=== PATIENT | female | born 1975 | race Caucasian/White ===

== ENCOUNTER 2018-10-26 20:38 | Emergency (ER) | payer OTHER ==
[2018-10-26 21:42] VITALS: BP 143/95; PULSE 89; RESP 20; TEMP 98.1
--- NOTE | 2018-10-26 21:58 | ED ---
Wound/Laceration HPI - General Source: patient Mode of arrival: wheelchair Limitations: no limitations <Ruby Monreal - Last Filed: 10/27/18 00:04> <Dulce Woodruff - Last Filed: 10/27/18 07:50> - General Chief Complaint: Wound/Laceration Stated Complaint: Knee injury/Laceration Time Seen by Provider: 10/26/18 21:45 - History of Present Illness Initial Comments: 43-year-old female presenting today for chief complaint of right knee pain. Patient states at 10 AM while walking the dog she tripped over one of the dogs falling forward on her right knee. Patient states there is a laceration of the anterior knee she states she was able to weight-bear and bend the knee throughout the day however the pain began increasing. When her significant other came home and evaluate the laceration he told her she needs presents emergency department for suture repair. The present to urgent care facility where they were sent to the emergency department for further evaluation and treatment. Patient did have the knee cleansed at the urgent care facility prior to arrival. Patient states her tetanus is up-to-date within the last 6 years. Patient denies any injury to the right ankle right hip she denies head injury injuries in neck or back. Patient states the pain is isolated to the anterior knee, sharp increase with movement. Remaingin ROS (-). (Ruby Monreal) - Related Data Home Medications Medication Instructions Recorded Confirmed Dextroamphetamine/Amphetamine 15 mg PO QAM 10/26/18 10/26/18 [Adderall Xr] Previous Rx's Medication Instructions Recorded Cephalexin [Keflex] 500 mg PO Q8HR 7 Days #21 cap 10/26/18 Allergies Allergy/AdvReac Type Severity Reaction Status Date / Time codeine Allergy Itching Verified 10/26/18 21:42 Review of Systems ROS Other: All systems not noted in ROS Statement are negative. <Ruby Monreal - Last Filed: 10/27/18 00:04> ROS Other: All systems not noted in ROS Statement are negative. <Dulce Woodruff - Last Filed: 10/27/18 07:50> ROS Statement: Those systems with pertinent positive or pertinent negative responses have been documented in the HPI. Past Medical History Additional Past Medical History / Comment(s): heart murmur History of Any Multi-Drug Resistant Organisms: None Reported Past Surgical History: Appendectomy, Hernia Repair Past Psychological History: No Psychological Hx Reported Smoking Status: Current every day smoker Past Alcohol Use History: Occasional Past Drug Use History: None Reported <Ruby Monreal - Last Filed: 10/27/18 00:04> General Exam Limitations: no limitations <Ruby Monreal Aly - Last Filed: 10/27/18 00:04> - General Exam Comments Initial Comments: General: The patient is awake and alert, in no distress, and does not appear acutely ill. Eye: Pupils are equal, round and reactive to light, extra-ocular movements are intact. No nystagmus. There is normal conjunctiva bilaterally. No signs of icterus. Ears, nose, mouth and throat: There are moist mucous membranes and no oral lesions. Neck: The neck is supple, there is no tenderness or JVD. Cardiovascular: There is a regular rate and rhythm. No murmur, rub or gallop is appreciated. Respiratory: Lungs are clear to auscultation, respirations are non-labored, breath sounds are equal. No wheezes, stridor, rales, or rhonchi. Musculoskeletal: Normal ROM of the knees bilaterally including the right knee patient does admit to tenderness with range of motion. Extensor mechanism intact. Strength 5/5. Sensation intact both proximal and distal to injury site. DP pulses equal bilaterally 2+. Neurological: A&O x 3. CN II-XII intact, There are no obvious motor or sensory deficits. Coordination appears grossly intact. Speech is normal. Skin: Skin is warm and dry and no rashes. Irregular 5cm laceration of the right anterior knee, no exposure of tendon-some adipose exposure. There is some devitalized tissue near the medial border of laceration, very small area. No evidence of obvious FB. No active bleeding, or signficant knee swelling or erythema. Psychiatric: Cooperative, appropriate mood & affect, normal judgment. (Ruby Monreal) Course Vital Signs 10/26/18 21:37 Temperature 98.1 F Pulse Rate 89 Respiratory 20 Rate Blood Pressure 143/95 O2 Sat by Pulse 96 Oximetry Procedures - Laceration Laceration #1 Consent Obtained: verbal consent Indication: laceration Site: lower extremity (right knee) Size (cm): 5 Description: irregular Depth: simple, single layer Anesthetic Used: lidocaine 1% Anesthesia Technique: local infiltration Amount (mls): 5 Pre-repair: wound explored, irrigated extensively, deep structures intact Type of Sutures: nylon Size of Sutures: 4-0 Number of Sutures: 6 Technique: simple, interrupted Patient Tolerated Procedure: well, no complications <Ruby Monreal - Last Filed: 10/27/18 00:04> - Laceration Laceration #1 Additional Comments: Small area on the medial aspect of laceration where there was devitalized tissue we did clean wound edges by removing the tissue using sterile scissors. Less than 2mm total. (Ruby Monreal) Medical Decision Making <Ruby oMnreal - Last Filed: 10/27/18 00:04> <Dulce Woodruff - Last Filed: 10/27/18 07:50> - Medical Decision Making 43-year-old female presented for right knee laceration injury occurred at 10 AM. Patient presented nearly 11 hours after injury occurred. There is no evidence of infection at this time. Patient is extensor mechanism intact. Patient has no neurovascular deficit or decreased range of motion able to weight-bear. Imaging studies really no obvious acute osseous injury there is no patella mehnaz or [place]. Supportive of a quadriceps or inferior patellar tendon rupture. Cannot rule out occult injury. No obvious exposure of tendon. Laceration was repaired some devitalized areas were revised. Wound was extensively irrigated prior to closure and cleansed with iodine. No evidence of foreign body, on physical examination. Patient was given Ancef given length of time laceration was open and location of laceration. Patient will be discharged with a prescription for Keflex to prevent infection. I discussed at length and in detail the importance of orthopedic surgery follow-up and monitoring for signs of infection. Patient verbalized understanding I did discuss with patient the possibility of a possible occult tendon injury however there is no evidence of this at this time patient verbalizes understanding. I discussed the case with attending provider Dr. Woodruff who looked at imaging studies she is agreeable care plan discharge in this time patient is placed in knee immobilizer sterile bandage was applied prior to this application. Patient was given [place] and emergency department for pain management and was discharged appearing well. Prior to discharge I did discuss the signs of infection and all return parameters. (Ruby Monreal) I was available for consultation in the emergency department. The history and physical exam were done by the midlevel provider. I was consulted for this patient's care. I reviewed the case with the midlevel provider and based on their presentation of the patient, I agree with the assessment, medical decision making and plan of care as documented. Chart was dictated using [employer] dictation software. Attempts were made to correct any dictation errors however some typographical errors may persist. (Dulce Woodruff) Disposition Is patient prescribed a controlled substance at d/c from ED?: No Time of Disposition: 23:43 <Ruby Monreal - Last Filed: 10/27/18 00:04> <Dulce Woodruff - Last Filed: 10/27/18 07:50> Clinical Impression: Knee laceration, Right knee injury, Right anterior knee pain, Fall Disposition: HOME SELF-CARE Condition: Good Instructions (If sedation given, give patient instructions): Care For Your Stitches (ED), Laceration (ED), R.I.C.E. Treatment (ED) Additional Instructions: Please use medication as discussed. Please follow-up use antibiotics as discussed please monitor closely the wound for infection checking under bandage daily. He is present to emergency for increasing pain and drainage fever red and swollen knee. I do recommend close orthopedic surgery follow-up for further evaluation of possible underlying hidden tendon injury in next 2-3 days. Use knee immobilizer when walking. Please return for suture removal in 7 days. Please return to emergency room if the symptoms increase or worsen or for any other concerns. Prescriptions: Cephalexin [Keflex] 500 mg PO Q8HR 7 Days #21 cap Referrals: Amilcar Pino DO [Primary Care Provider] - 1-2 days Patel Lieberman MD [STAFF PHYSICIAN] - 1-2 days
[2018-10-26] MEDS ORDERED: HYDROcodone/APAP 5-325MG 1 EACH TAB PO STA (22:20)
--- NOTE | 2018-10-26 22:40 | XR ---
EXAM: XR Right Knee, 3 views CLINICAL HISTORY: ITS.REASON XR Reason: Pain and laceration after fall TECHNIQUE: Three views of the right knee. COMPARISON: None FINDINGS: Bones/joints: No displaced fracture or dislocation identified. Joint space is maintained. No bony lesion. No joint effusion. Soft tissues: Soft tissue laceration in the infrapatellar soft tissues. Punctate densities in the infrapatellar soft tissues may represent debris. IMPRESSION: No displaced fracture or dislocation identified. Soft tissue laceration in the infrapatellar soft tissues. If there is concern regarding injury to the infrapatellar tendon, consider further evaluation with MRI. No evidence of patella mehnaz. Punctate densities in the infrapatellar soft tissues may represent debris.
[2018-10-26] MEDS ORDERED: ceFAZolin 1,000 MG VIAL IM STA (22:42)
[2018-10-26] MEDS ORDERED: SODIUM CHLORIDE 0.9% IRRIG 1,000 ML BTL IRRIGATION ONE (22:42)
[2018-10-26] MEDS ORDERED: LIDOCAINE 1% INJ 10MG/ML (20 ML MDV) SQ ONE (22:43)
== END 2018-10-27 00:02 | disposition home or self-care (01) ==
LOC: EC 20:38
DX: S81.011A Laceration without foreign body, right knee, initial encounter (principal); F17.200 Nicotine dependence, unspecified, uncomplicated; Z88.5 Allergy status to narcotic agent; W01.0XXA Fall on same level from slipping, tripping and stumbling without subsequent striking against object, initial encounter; Y93.K1 Activity, walking an animal
CPT/HCPCS: 73562; 99283; 12002; 96372; J0690; J2001

== ENCOUNTER 2024-01-08 08:55 | Emergency (ER) | payer BC ==
[2024-01-08 09:04] VITALS: TEMP 97.9
[2024-01-08 09:58] LABS: ALT 17 U/L (4-34); AST 26 U/L (14-36); African American GFR (CKD) >90 (>60 ml/min/1.73 sqM); Alkaline Phosphatase 79 U/L (38-126); Anion Gap 8 mmol/L; Blood Urea Nitrogen 12 mg/dL (7-17); Calcium 10.9 mg/dL (8.4-10.2); Carbon Dioxide 28 mmol/L (22-30); Chloride 102 mmol/L (98-107); Glucose 110 mg/dL (74-99); Lipase 39 U/L (23-300); Non-African American GFR(CKD) >90 (>60 ml/min/1.73 sqM); Potassium 5.6 mmol/L (3.5-5.1); Sodium 138 mmol/L (137-145); Total Bilirubin 0.9 mg/dL (0.2-1.3); Total Protein 8.1 g/dL (6.3-8.2)
[2024-01-08 10:00] LABS: Basophils % (A) 0 %; Eosinophils # (A) 0.1 k/uL (0-0.7); Eosinophils % (A) 1 %; HCT 49.8 % (34.0-46.0); Lymphocytes # (A) 1.7 k/uL (1.0-4.8); Lymphocytes % (A) 16 %; MCH 33.7 pg (25.0-35.0); MCHC 34.2 g/dL (31.0-37.0); MCV 98.5 fL (80.0-100.0); Mean Platelet Volume 7.4; Monocytes # (A) 0.5 k/uL (0-1.0); Monocytes % (A) 5 %; Neutrophils # (A) 8.4 k/uL (1.3-7.7); Neutrophils % (A) 78 %; Platelet Count 344 k/uL (150-450); RBC 5.05 m/uL (3.80-5.40); WBC 10.8 k/uL (3.8-10.6)
--- NOTE | 2024-01-08 10:19 | ED ---
Nausea/Vomiting/Diarrhea HPI - General Chief complaint: Abdominal Pain Stated complaint: diarrhea Time Seen by Provider: 01/08/24 10:06 Source: patient, family, RN notes reviewed Mode of arrival: ambulatory Limitations: no limitations - History of Present Illness Initial comments: This is a 48-year-old female who presents to the emergency department for diarrhea. States that this has been ongoing for the last month. Unsure how many times a day she goes, states that it varies significantly. This was originally formed but has since been essentially straight liquid. She has been on Imodium and Lomotil without any relief. She does note being on antibiotics on and off due to a dental infection. She saw her primary care provider 1.5 weeks ago and sent in a stool sample. States that this was negative for C. difficile. She has abdominal discomfort as well as weight loss, however the abdominal pain has gotten worse over the last couple of days. She has not had any vomiting but has been nauseous. She is concerned because her mother just of colon cancer. MD complaint: diarrhea - Related Data Home Medications Medication Instructions Recorded Confirmed Dextroamphetamine/Amphetamine 15 mg PO QAM 10/26/18 10/26/18 [Adderall Xr] Previous Rx's Medication Instructions Recorded cephALEXin [Keflex] 500 mg PO Q8HR 7 Days #21 cap 10/26/18 Allergies Allergy/AdvReac Type Severity Reaction Status Date / Time cephalexin [From Keflex] Allergy Nausea & Verified 01/08/24 09:04 Vomiting & Diarrhea codeine Allergy Itching Verified 10/26/18 21:42 Review of Systems ROS Statement: Those systems with pertinent positive or pertinent negative responses have been documented in the HPI. ROS Other: All systems not noted in ROS Statement are negative. Past Medical History Additional Past Medical History / Comment(s): heart murmur History of Any Multi-Drug Resistant Organisms: None Reported Past Surgical History: Appendectomy, Hernia Repair Past Psychological History: No Psychological Hx Reported Past Alcohol Use History: Occasional Past Drug Use History: None Reported General Exam Limitations: no limitations General appearance: alert, in no apparent distress Head exam: Present: atraumatic, normocephalic, normal inspection Respiratory exam: Present: normal lung sounds bilaterally. Absent: respiratory distress, wheezes, rales, rhonchi, stridor Cardiovascular Exam: Present: regular rate, normal rhythm, normal heart sounds. Absent: systolic murmur, diastolic murmur, rubs, gallop, clicks GI/Abdominal exam: Present: soft, tenderness (generalized), normal bowel sounds. Absent: distended Neurological exam: Present: alert, oriented X3, CN II-XII intact Psychiatric exam: Present: normal affect, normal mood Skin exam: Present: warm, dry, intact, normal color. Absent: rash Course Vital Signs 01/08/24 01/08/24 09:00 12:37 Temperature 97.9 F Pulse Rate 93 87 Respiratory 20 18 Rate Blood Pressure 127/85 145/89 O2 Sat by Pulse 99 98 Oximetry Medical Decision Making - Medical Decision Making This is a 48 year old female who presents to the emergency department for abdominal pain and diarrhea. Was pt. sent in by a medical professional or institution? @ -No Did you speak to anyone other than the patient for history? @ -No Did you review nursing and triage notes? @ -Yes, and I agree, it is accurate with regards to the patient's symptoms. Were old charts reviewed? @ -No Differential Diagnosis? @ -Differential Abdominal Pain Women: Appendicitis, Cholecystitis, diverticulosis, ischemic bowel, pancreatitis, hepatitis, UTI, gastroenteritis, AAA, incarcerated hernia, bowel obstruction, constipation, inflammatory bowel, hepatitis, peptic ulcer disease, splenic infarction, perforated viscus, vulvitis, ovarian torsion, PID, kidney stone, placenta abruption, this is not meant to be an all-inclusive list EKG interpreted by me (3pts min.)? @ -Not obtained X-rays interpreted by me (1pt min.)? @ -Not obtained CT interpreted by me (1pt min.)? @ -CT scan of the abdomen and pelvis obtained. My interpretation identifies no evidence of bowel wall thickening or free air. U/S interpreted by me (1pt. min.)? @ -Not obtained What testing was considered but not performed? (CT, X-rays, U/S, labs)? Why? @ -None What meds were considered but not given? Why? @ -None Did you discuss the management of the patient with other professionals? @ -No Did you reconcile home meds? @ -No Was smoking cessation discussed for >3mins.? @ -No Was critical care preformed (if so, how long)? @ -No Were there social determinants of health that impacted care today? How? (Homelessness, low income, unemployed, alcoholism, drug addiction, transportation, low edu. Level, literacy, decrease access to med. care, snf, rehab)? @ -No Was there de-escalation of care discussed even if they declined? (Discuss DNR or withdrawal of care, Hospice)? @ -No What co-morbidities impacted this encounter? (DM, HTN, Smoking, COPD, CAD, Cancer, CVA, Hep., AIDS, mental health diagnosis, sleep apnea, morbid obesity)? @ -None Was patient admitted / discharged? @ -Discharged. Lab work demonstrates mild leukocytosis with a white blood cell count of 10.8. She also has mild hyperkalemia with a potassium of 5.6. Urinalysis negative for signs of infection. CT scan of the abdomen and pelvis obtained demonstrating no acute process. Discussed the possibility of something like irritable bowel syndrome or repeated antibiotic use contributing to her symptoms. Lokelma administered in the emergency department due to hyperkalemia. Discussed using fiber supplements to help bulk up the stool, as she is not going multiple times a day at this point, it is just very loose. Also advised she remain well-hydrated. Information for GI follow-up provided. Case discussed with ED attending Dr. Ruiz. Return precautions reviewed in depth, the patient is instructed to return to the emergency department with any new, worsening, or concerning symptoms. Patient verbalized understanding. Undiagnosed new problem with uncertain prognosis? @ -None Drug Therapy requiring intensive monitoring for toxicity (Heparin, Nitro, Insulin, Cardizem)? @ -None Were any procedures done? @ -None Diagnosis/symptom? @ -Diarrhea, hyperkalemia Acute, or Chronic, or Acute on Chronic? @ -Acute Uncomplicated (without systemic symptoms) or Complicated (systemic symptoms)? @ -Uncomplicated Side effects of treatment? @ -None Exacerbation, Progression, or Severe Exacerbation] @ -Not applicable Poses a threat to life or bodily function? @ -No - Lab Data Result diagrams: 01/08/24 09:08 01/08/24 09:08 Lab Results 01/08/24 01/08/24 01/08/24 Range/Units 09:08 09:08 09:08 WBC 10.8 H (3.8-10.6) k/uL RBC 5.05 (3.80-5.40) m/uL Hgb 17.0 H (11.4-16.0) gm/dL Hct 49.8 H (34.0-46.0) % MCV 98.5 (80.0-100.0) fL MCH 33.7 (25.0-35.0) pg MCHC 34.2 (31.0-37.0) g/dL RDW 12.0 (11.5-15.5) % Plt Count 344 (150-450) k/uL MPV 7.4 Neutrophils % 78 % Lymphocytes % 16 % Monocytes % 5 % Eosinophils % 1 % Basophils % 0 % Neutrophils # 8.4 H (1.3-7.7) k/uL Lymphocytes # 1.7 (1.0-4.8) k/uL Monocytes # 0.5 (0-1.0) k/uL Eosinophils # 0.1 (0-0.7) k/uL Basophils # 0.0 (0-0.2) k/uL Sodium 138 (137-145) mmol/L Potassium 5.6 H (3.5-5.1) mmol/L Chloride 102 (98-107) mmol/L Carbon Dioxide 28 (22-30) mmol/L Anion Gap 8 mmol/L BUN 12 (7-17) mg/dL Creatinine 0.70 (0.52-1.04) mg/dL Est GFR (CKD-EPI)AfAm >90 (>60 ml/min/1.73 sqM) Est GFR (CKD-EPI)NonAf >90 (>60 ml/min/1.73 sqM) Glucose 110 H (74-99) mg/dL Plasma Lactic Acid David (0.7-2.0) mmol/L Calcium 10.9 H (8.4-10.2) mg/dL Phosphorus (2.5-4.5) mg/dL Magnesium (1.6-2.3) mg/dL Total Bilirubin 0.9 (0.2-1.3) mg/dL AST 26 (14-36) U/L ALT 17 (4-34) U/L Alkaline Phosphatase 79 (38-126) U/L Total Protein 8.1 (6.3-8.2) g/dL Albumin 5.0 (3.5-5.0) g/dL Lipase 39 (23-300) U/L Urine Color Colorless Urine Appearance Clear (Clear) Urine pH 5.5 (5.0-8.0) Ur Specific [place] 1.005 (1.001-1.035) Urine Protein Negative (Negative) Urine Glucose (UA) Negative (Negative) Urine Ketones Negative (Negative) Urine Blood Negative (Negative) Urine Nitrite Negative (Negative) Urine Bilirubin Negative (Negative) Urine Urobilinogen <2.0 (<2.0) mg/dL Ur Leukocyte Esterase Negative (Negative) 01/08/24 01/08/24 Range/Units 09:08 09:08 WBC (3.8-10.6) k/uL RBC (3.80-5.40) m/uL Hgb (11.4-16.0) gm/dL Hct (34.0-46.0) % MCV (80.0-100.0) fL MCH (25.0-35.0) pg MCHC (31.0-37.0) g/dL RDW (11.5-15.5) % Plt Count (150-450) k/uL MPV Neutrophils % % Lymphocytes % % Monocytes % % Eosinophils % % Basophils % % Neutrophils # (1.3-7.7) k/uL Lymphocytes # (1.0-4.8) k/uL Monocytes # (0-1.0) k/uL Eosinophils # (0-0.7) k/uL Basophils # (0-0.2) k/uL Sodium (137-145) mmol/L Potassium (3.5-5.1) mmol/L Chloride (98-107) mmol/L Carbon Dioxide (22-30) mmol/L Anion Gap mmol/L BUN (7-17) mg/dL Creatinine (0.52-1.04) mg/dL Est GFR (CKD-EPI)AfAm (>60 ml/min/1.73 sqM) Est GFR (CKD-EPI)NonAf (>60 ml/min/1.73 sqM) Glucose (74-99) mg/dL Plasma Lactic Acid David 1.0 (0.7-2.0) mmol/L Calcium (8.4-10.2) mg/dL Phosphorus 3.4 (2.5-4.5) mg/dL Magnesium 2.0 (1.6-2.3) mg/dL Total Bilirubin (0.2-1.3) mg/dL AST (14-36) U/L ALT (4-34) U/L Alkaline Phosphatase (38-126) U/L Total Protein (6.3-8.2) g/dL Albumin (3.5-5.0) g/dL Lipase (23-300) U/L Urine Color Urine Appearance (Clear) Urine pH (5.0-8.0) Ur Specific [place] (1.001-1.035) Urine Protein (Negative) Urine Glucose (UA) (Negative) Urine Ketones (Negative) Urine Blood (Negative) Urine Nitrite (Negative) Urine Bilirubin (Negative) Urine Urobilinogen (<2.0) mg/dL Ur Leukocyte Esterase (Negative) - Radiology Data Radiology results: report reviewed, image reviewed Disposition Clinical Impression: Diarrhea, Hyperkalemia Disposition: HOME SELF-CARE Instructions (If sedation given, give patient instructions): Irritable Bowel Syndrome (ED), Acute Diarrhea (ED) Additional Instructions: Return to the emergency department with any new, worsening, or concerning symptoms. Make sure you drink plenty of fluids. Begin taking your fiber supplements. You can also contact the hydramatic mechanic listed below. Let them know that you were seen in the emergency department and they will schedule you for a follow-up appointment. Is patient prescribed a controlled substance at d/c from ED?: No Referrals: Amilcar Pino DO [Primary Care Provider] - 1-2 days Katiana Morillo MD [STAFF PHYSICIAN] - 1-2 days Time of Disposition: 11:39
[2024-01-08 10:22] LABS: Appearance,Urine Clear (Clear); Bilirubin,Urine Negative (Negative); Blood,Urine Negative (Negative); Color,Urine Colorless; Glucose,Urine (UA) Negative (Negative); Ketones,Urine Negative (Negative); Leukocyte Esterase,Urine Negative (Negative); Nitrite,Urine Negative (Negative); PH, Urine 5.5 (5.0-8.0); Protein,Urine Negative (Negative); Specific Gravity,Urine 1.005 (1.001-1.035); Urobilinogen,Urine <2.0 mg/dL (<2.0)
[2024-01-08 10:37] LABS: Phosphorus 3.4 mg/dL (2.5-4.5)
--- NOTE | 2024-01-08 10:55 | CT ---
EXAMINATION TYPE: CT abdomen pelvis w con DATE OF EXAM: 01/08/2024 COMPARISON: None HISTORY: diarrhea CT DLP: 602.3 mGycm Automated exposure control for dose reduction was used. TECHNIQUE: Helical acquisition of images was performed from the lung bases through the pelvis. CONTRAST: Performed without Oral Contrast and with IV Contrast, patient injected with 100 mL of Isovue 300. FINDINGS: The lung bases are clear. The gallbladder is normal without distention, wall thickening, pericholecystic fluid or gallstones. T here is no biliary ductal dilatation. There is no focal mass or organomegaly involving the liver, pancreas, spleen or adrenal glands. There is no solid renal mass or hydronephrosis and there is homogeneous contrast enhancement of the r enal parenchyma. The caliber the abdominal aorta is normal is no retroperitoneal adenopathy or hemorr laurie. The bowel loops are normal in caliber and there is no evidence of dilatation or obstruction. No infla mmatory changes are identified in the bowel wall or mesentery. There is no free intraperitoneal air or fluid. No pelvic mass, free fluid, abscess or adenopathy. The osseous structures and soft tissues are intact. IMPRESSION: No significant abnormality seen.
[2024-01-08 12:39] VITALS: BP 145/89; PULSE 87; RESP 18
[2024-01-08] MEDS: SODIUM ZIRCONIUM CYCLOSILICATE 10 GM PACKET PO ONE (12:49)
== END 2024-01-08 13:00 | disposition home or self-care (01) ==
LOC: EC 08:55
DX: R19.7 Diarrhea, unspecified (principal); R10.84 Generalized abdominal pain; E87.5 Hyperkalemia; D72.829 Elevated white blood cell count, unspecified; Z88.5 Allergy status to narcotic agent; Z88.1 Allergy status to other antibiotic agents
CPT/HCPCS: 36415; 80053; 83605; 83690; 83735; 84100; 85025; 81003; 74177; 99284; Q9967

== ENCOUNTER 2024-03-10 08:15 | Day surgery (SDC) | payer BC ==
[2024-03-10 09:07] VITALS: RESP 16; TEMP 98.3
[2024-03-10] MEDS: IV FLUID CONTINUATION 1,000 ML IV ONE ×2 (09:12→09:47)
[2024-03-10] MEDS: LACTATED RINGERS 1,000 ML IV SCH (09:12)
[2024-03-10] MEDS: LIDOCAINE 1% (10MG/ML) FOR IV START INTRADERMA PRN (09:12)
[2024-03-10] MEDS ORDERED: LIDOCAINE 1% INJ 10MG/ML (20 ML MDV) ONE (09:21)
[2024-03-10] MEDS ORDERED: PROPOFOL 10 MG/ML 20 ML VIAL IV ONE (09:21)
--- NOTE | 2024-03-10 09:24 | P.GSHP ---
History of Present Illness H&P Date: 03/10/24 Chief Complaint: Gerd, diverticulitis Is a 48-year-old female with complaints of gerd diverticulitis. Patient presents today for EGD and colonoscopy. Past Medical History Past Medical History: GERD/Reflux Additional Past Medical History / Comment(s): CURRENT TX FOR YEAST INFECTION. PROAIR FOR ALLERGY SYMPTOMS History of Any Multi-Drug Resistant Organisms: None Reported Past Surgical History: Appendectomy, Hernia Repair Past Anesthesia/Blood Transfusion Reactions: No Reported Reaction Past Psychological History: No Psychological Hx Reported Smoking Status: Current every day smoker Past Alcohol Use History: Occasional Additional Past Alcohol Use History / Comment(s): SMOKE SINCE 21 YR. 1PPD. Past Drug Use History: None Reported Medications and Allergies Home Medications Medication Instructions Recorded Confirmed Type Albuterol Sulfate [Proair 1 puff IN DAILY PRN 03/09/24 03/09/24 History Digihaler] Citalopram Hydrobromide [CeleXA] 20 mg PO HS 03/09/24 03/09/24 History Clotrimazole 10 mg PO QID 03/09/24 03/09/24 History Dextroamphetamine/Amphetamine 20 mg PO QAM 03/09/24 03/09/24 History [Adderall] Famotidine [Pepcid] 20 mg PO QAM 03/09/24 03/09/24 History Fexofenadine HCl [Alcey Allergy] 180 mg PO DAILY 03/09/24 03/09/24 History Fluconazole [Diflucan] 200 mg PO DAILY 03/09/24 03/09/24 History L.acidoph,Paracasei, B.lactis 1 cap PO DAILY 03/09/24 03/09/24 History [Probiotic] Multivitamins, Thera [Multivitamin 1 tab PO DAILY 03/09/24 03/09/24 History (formulary)] Allergies Allergy/AdvReac Type Severity Reaction Status Date / Time codeine Allergy Itching Verified 03/10/24 08:49 cephalexin [From Keflex] AdvReac Diarrhea Verified 03/10/24 08:49 Surgical - Exam Vital Signs Temp Pulse Resp BP Pulse Ox 98.3 F 102 H 16 136/90 95 03/10/24 09:04 03/10/24 09:04 03/10/24 09:04 03/10/24 09:04 03/10/24 09:04 - General well developed, well nourished, no distress - Eyes PERRL - ENT normal pinna - Neck no masses - Respiratory normal expansion - Cardiovascular Rhythm: regular - Abdomen Abdomen: soft, non tender Assessment and Plan Assessment: Gerd, diverticulitis. Patient will perform EGD and colonoscopy.
--- NOTE | 2024-03-10 09:48 | P.OP ---
Date of Procedure: 03/10/24 Preoperative Diagnosis: Gerd Diverticulitis Postoperative Diagnosis: Antral gastritis Minimal diverticulosis Procedure(s) Performed: EGD Colonoscopy Anesthesia: MAC Surgeon: Jamil Vargas Pathology: other (Antrum) Condition: stable Disposition: PACU Description of Procedure: The patient was placed on the endoscopy table in the lateral position. She received IV sedation. The Gastroflux oropharynx passed in the esophagus and stomach. Scope was placed through the pylorus. The first and second portion of the duodenum appeared normal. Scope was brought back to the antrum this appeared mildly Flaim. A biopsy performed. The scope was then retroflexed and the Mainer of the stomach appeared normal. The GE junction was at 47. The distal esophagus. Reported the proximal esophagus appeared well. Scope withdrawn the patient. Next digital rectal exam was performed. This revealed no abnormality. Flex colonoscope was then placed patient anus passed throughout the e colon. The scopeinto the cecum secondary tortuosity bowel. Scope was withdrawn. The visualized right colon appeared normal. The transverse colon appeared normal. In the descending sigmoid colon a few scattered diverticuli. Scope was back to the rectum this appeared normal. Scope withdrawn for the patient. D
[2024-03-10 10:05] VITALS: BP 130/90; PULSE 74
== END 2024-03-10 10:32 | disposition home or self-care (01) ==
LOC: ORWHC2ENDO 08:15
PROVIDERS: ATTEND Surgery
DX: K29.70 Gastritis, unspecified, without bleeding (principal); K31.9 Disease of stomach and duodenum, unspecified; K21.9 Gastro-esophageal reflux disease without esophagitis; K57.30 Diverticulosis of large intestine without perforation or abscess without bleeding; F17.210 Nicotine dependence, cigarettes, uncomplicated; Z79.899 Other long term (current) drug therapy; Z88.5 Allergy status to narcotic agent; Z88.1 Allergy status to other antibiotic agents
CPT/HCPCS: 43239; 45378; 81025; 88305

== ENCOUNTER 2024-03-12 10:59 | Emergency (ER) | payer BC ==
[2024-03-12 11:14] VITALS: TEMP 97.9
--- NOTE | 2024-03-12 11:36 | ED ---
Abdominal Pain HPI - General Chief Complaint: Abdominal Pain Stated Complaint: chills,upper abd pain Time Seen by Provider: 03/12/24 11:34 Source: patient, family, RN notes reviewed Mode of arrival: wheelchair Limitations: no limitations - History of Present Illness Initial Comments: 48-year-old female presented to the ER with a chief complaint of abdominal pain. Patient states this been going on for "a while". She has been following up with Dr. Vargas and underwent an EGD and colonoscopy on 03-10-2024. , at bedside, is aiding in HPI and reports findings of scopes were negative. Patient states since ago she has been having an increase in pain to her right upper quadrant and is scheduled for an ultrasound on 03-22-2024. She describes the pain as a pressure/burning sensation and is having frequent belching and nausea. She denies any vomiting. She reports normal bowel movements with no hematochezia, melena or hematic emesis. She has been taking [id number] Pepcid without relief. reports patient has lost approximately 40 pounds since onset of pain as she has been having a decreased appetite. She denies any fevers, chills, chest pain, shortness of breath, urinary complaints or peripheral edema. - Related Data Home Medications Medication Instructions Recorded Confirmed Albuterol Sulfate [Proair 1 puff IN DAILY PRN 03/09/24 03/09/24 Digihaler] Citalopram Hydrobromide [CeleXA] 20 mg PO HS 03/09/24 03/09/24 Clotrimazole 10 mg PO QID 03/09/24 03/09/24 Dextroamphetamine/Amphetamine 20 mg PO QAM 03/09/24 03/09/24 [Adderall] Famotidine [Pepcid] 20 mg PO QAM 03/09/24 03/09/24 Fexofenadine HCl [Lacey Allergy] 180 mg PO DAILY 03/09/24 03/09/24 Fluconazole [Diflucan] 200 mg PO DAILY 03/09/24 03/09/24 L.acidoph,Paracasei, B.lactis 1 cap PO DAILY 03/09/24 03/09/24 [Probiotic] Multivitamins, Thera [Multivitamin 1 tab PO DAILY 03/09/24 03/09/24 (formulary)] Previous Rx's Medication Instructions Recorded Omeprazole 20 mg PO DAILY #30 cap 03/12/24 Allergies Allergy/AdvReac Type Severity Reaction Status Date / Time codeine Allergy Itching Verified 03/12/24 11:14 cephalexin [From Keflex] AdvReac Diarrhea Verified 03/12/24 11:14 Review of Systems ROS Statement: Those systems with pertinent positive or pertinent negative responses have been documented in the HPI. ROS Other: All systems not noted in ROS Statement are negative. Past Medical History Past Medical History: GERD/Reflux Additional Past Medical History / Comment(s): CURRENT TX FOR YEAST INFECTION. PROAIR FOR ALLERGY SYMPTOMS History of Any Multi-Drug Resistant Organisms: None Reported Past Surgical History: Appendectomy, Hernia Repair Past Anesthesia/Blood Transfusion Reactions: No Reported Reaction Past Psychological History: No Psychological Hx Reported Smoking Status: Current every day smoker Past Alcohol Use History: Occasional Past Drug Use History: None Reported General Exam Limitations: no limitations (Frequently belching) General appearance: alert, in no apparent distress Respiratory exam: Present: normal lung sounds bilaterally. Absent: respiratory distress, wheezes, rales, rhonchi, stridor Cardiovascular Exam: Present: regular rate, normal rhythm, normal heart sounds. Absent: systolic murmur, diastolic murmur, rubs, gallop, clicks GI/Abdominal exam: Present: soft, tenderness (RUQ), normal bowel sounds Extremities exam: Present: normal inspection, full ROM, normal capillary refill. Absent: tenderness, pedal edema, joint swelling, calf tenderness Neurological exam: Present: alert, oriented X3, CN II-XII intact Skin exam: Present: warm, dry, intact, normal color. Absent: rash Course Vital Signs 03/12/24 03/12/24 03/12/24 11:08 12:04 13:20 Temperature 97.9 F Pulse Rate 92 79 66 Respiratory 18 20 20 Rate Blood Pressure 131/93 154/99 132/86 O2 Sat by Pulse 98 99 97 Oximetry Medical Decision Making - Medical Decision Making Was pt. sent in by a medical professional or institution (, PA, PUMP ERECTOR, urgent care, hospital, or fci...) When possible be specific @ -No Did you speak to anyone other than the patient for history (EMS, parent, family, police, friend...)? What history was obtained from this source @ -No Did you review nursing and triage notes (agree or disagree)? Why? @ -I reviewed and agree with nursing and triage notes Were old charts reviewed (outside hosp., previous admission, EMS record, old EKG, old radiological studies, urgent care reports/EKG's, fci records)? Report findings @ -No old charts were reviewed Differential Diagnosis (chest pain, altered mental status, abdominal pain women, abdominal pain men, vaginal bleeding, weakness, fever, dyspnea, syncope, headache, dizziness, GI bleed, back pain, seizure, CVA, palpatations, mental health, musculoskeletal)? @ -Differential Abdominal Pain Women: Appendicitis, Cholecystitis, diverticulosis, ischemic bowel, pancreatitis, hepatitis, UTI, gastroenteritis, AAA, incarcerated hernia, bowel obstruction, constipation, inflammatory bowel, hepatitis, peptic ulcer disease, splenic infarction, perforated viscus, vulvitis, ovarian torsion, PID, kidney stone, placenta abruption, this is not meant to be an all-inclusive list EKG interpreted by me (3pts min.). @ -As above X-rays interpreted by me (1pt min.). @ -None done CT interpreted by me (1pt min.). @ -None done U/S interpreted by me (1pt. min.). @ -Gallbladder ultrasound negative for acute process. There is a prominent gallbladder measuring 12.6 cm in length and 3.9 cm in width. No gallstones. No wall thickening. What testing was considered but not performed or refused? (CT, X-rays, U/S, labs)? Why? @ -None What meds were considered but not given or refused? Why? @ -None Did you discuss the management of the patient with other professionals (susan fisher i.e. , PA, PUMP ERECTOR, lab, RT, psych nurse, rn social work, urologist, teacher, hazard mitigation officer, medical case worker)? Give summary @ -No Was smoking cessation discussed for >3mins.? @ -No Was critical care preformed (if so, how long)? @ -No Were there social determinants of health that impacted care today? How? (Homelessness, low income, unemployed, alcoholism, drug addiction, transportation, low edu. Level, literacy, decrease access to med. care, nursing home, rehab)? @ -No Was there de-escalation of care discussed even if they declined (Discuss DNR or withdrawal of care, Hospice)? DNR status @ -No What co-morbidities impacted this encounter? (DM, HTN, Smoking, COPD, CAD, Cancer, CVA, ARF, Chemo, Hep., AIDS, mental health diagnosis, sleep apnea, morbid obesity)? @ -None Was patient admitted / discharged? Hospital course, mention meds given and route, prescriptions, significant lab abnormalities, going to OR and other pertinent info. @ -Discharge. 48-year-old female presented to the ER with a chief complaint of abdominal pain and nausea. Patient recently underwent EGD and colonoscopy by Dr Lainey Vargas on 03/10/24. History and physical exam completed. Vitals within normal limits. Patient is belching on exam with tenderness to right upper quadrant. Normal bowel sounds without rebound or guarding. Laboratory studies obtained unremarkable. Urinalysis without evidence of infection or dehydration. Ultrasound showing no acute process. There is a prominent gallbladder measuring 12.6 cm in length and 3.9 cm in width. No gallstones or wall thickening present. Patient received IV fluids, Zofran, Pepcid, Protonix and Reglan for symptom control in the ER. Upon reevaluation, patient resting comfortably in exam room reporting mild improvement of belching. Results discussed with patient, all questions answered. Patient does report she has HIDA scan scheduled for 03/22/24. Advised her to follow-up with Dr. Vargas as scheduled and reach out to his office on Thursday to update him on ER visit. Strict return parameters discussed. Patient discharged in stable condition with a prescription of omeprazole. Patient verbally expressed understanding and agreement with care plan. Case discussed with ED attending, Dr. East. Undiagnosed new problem with uncertain prognosis? @ -No Drug Therapy requiring intensive monitoring for toxicity (Heparin, Nitro, Insulin, Cardizem)? @ -No Were any procedures done? @ -No Diagnosis/symptom? @ -Abdominal pain Acute, or Chronic, or Acute on Chronic? @ -Acute Uncomplicated (without systemic symptoms) or Complicated (systemic symptoms)? @ -Uncomplicated Side effects of treatment? @ -No Exacerbation, Progression, or Severe Exacerbation? @ -No Poses a threat to life or bodily function? How? (Chest pain, USA, IA, pneumonia, PE, COPD, DKA, ARF, appy, cholecystitis, CVA, Diverticulitis, Homicidal, Suicidal, threat to staff... and all critical care pts) @ -No - Lab Data Result diagrams: 03/12/24 11:42 03/12/24 11:42 Lab Results 03/12/24 03/12/24 03/12/24 Range/Units 11:42 11:42 11:42 WBC 7.9 (3.8-10.6) k/uL RBC 4.34 (3.80-5.40) m/uL Hgb 14.8 (11.4-16.0) gm/dL Hct 43.0 (34.0-46.0) % MCV 98.9 (80.0-100.0) fL MCH 34.0 (25.0-35.0) pg MCHC 34.4 (31.0-37.0) g/dL RDW 11.6 (11.5-15.5) % Plt Count 263 (150-450) k/uL MPV 7.4 Neutrophils % 67 % Lymphocytes % 25 % Monocytes % 5 % Eosinophils % 1 % Basophils % 0 % Neutrophils # 5.3 (1.3-7.7) k/uL Lymphocytes # 1.9 (1.0-4.8) k/uL Monocytes # 0.4 (0-1.0) k/uL Eosinophils # 0.1 (0-0.7) k/uL Basophils # 0.0 (0-0.2) k/uL Sodium 136 L (137-145) mmol/L Potassium 4.1 (3.5-5.1) mmol/L Chloride 102 (98-107) mmol/L Carbon Dioxide 25 (22-30) mmol/L Anion Gap 9 mmol/L BUN 9 (7-17) mg/dL Creatinine 0.76 (0.52-1.04) mg/dL Est GFR (CKD-EPI)AfAm >90 (>60 ml/min/1.73 sqM) Est GFR (CKD-EPI)NonAf >90 (>60 ml/min/1.73 sqM) Glucose 100 H (74-99) mg/dL Plasma Lactic Acid David (0.7-2.0) mmol/L Calcium 10.3 H (8.4-10.2) mg/dL Total Bilirubin 0.7 (0.2-1.3) mg/dL AST 25 (14-36) U/L ALT 30 (4-34) U/L Alkaline Phosphatase 77 (38-126) U/L Total Protein 7.0 (6.3-8.2) g/dL Albumin 4.5 (3.5-5.0) g/dL Amylase 48 (30-110) U/L Lipase 47 (23-300) U/L Urine Color Colorless Urine Appearance Clear (Clear) Urine pH 6.5 (5.0-8.0) Ur Specific Rhodelia 1.003 (1.001-1.035) Urine Protein Negative (Negative) Urine Glucose (UA) Negative (Negative) Urine Ketones Negative (Negative) Urine Blood Negative (Negative) Urine Nitrite Negative (Negative) Urine Bilirubin Negative (Negative) Urine Urobilinogen <2.0 (<2.0) mg/dL Ur Leukocyte Esterase Negative (Negative) 03/12/24 Range/Units 11:42 WBC (3.8-10.6) k/uL RBC (3.80-5.40) m/uL Hgb (11.4-16.0) gm/dL Hct (34.0-46.0) % MCV (80.0-100.0) fL MCH (25.0-35.0) pg MCHC (31.0-37.0) g/dL RDW (11.5-15.5) % Plt Count (150-450) k/uL MPV Neutrophils % % Lymphocytes % % Monocytes % % Eosinophils % % Basophils % % Neutrophils # (1.3-7.7) k/uL Lymphocytes # (1.0-4.8) k/uL Monocytes # (0-1.0) k/uL Eosinophils # (0-0.7) k/uL Basophils # (0-0.2) k/uL Sodium (137-145) mmol/L Potassium (3.5-5.1) mmol/L Chloride (98-107) mmol/L Carbon Dioxide (22-30) mmol/L Anion Gap mmol/L BUN (7-17) mg/dL Creatinine (0.52-1.04) mg/dL Est GFR (CKD-EPI)AfAm (>60 ml/min/1.73 sqM) Est GFR (CKD-EPI)NonAf (>60 ml/min/1.73 sqM) Glucose (74-99) mg/dL Plasma Lactic Acid David 0.9 (0.7-2.0) mmol/L Calcium (8.4-10.2) mg/dL Total Bilirubin (0.2-1.3) mg/dL AST (14-36) U/L ALT (4-34) U/L Alkaline Phosphatase (38-126) U/L Total Protein (6.3-8.2) g/dL Albumin (3.5-5.0) g/dL Amylase (30-110) U/L Lipase (23-300) U/L Urine Color Urine Appearance (Clear) Urine pH (5.0-8.0) Ur Specific Rhodelia (1.001-1.035) Urine Protein (Negative) Urine Glucose (UA) (Negative) Urine Ketones (Negative) Urine Blood (Negative) Urine Nitrite (Negative) Urine Bilirubin (Negative) Urine Urobilinogen (<2.0) mg/dL Ur Leukocyte Esterase (Negative) - EKG Data -: EKG Interpreted by Ia EKG Comments: EKG taken at 11: 40 showing a sinus rhythm. No acute ST segment elevations or depressions. No T wave inversions. Ventricular rate 74, WA interval 144, QRS duration 84, QT/QTc 360/387. - Radiology Data Radiology results: report reviewed, image reviewed Disposition Clinical Impression: Abdominal pain Disposition: HOME SELF-CARE Condition: Stable Instructions (If sedation given, give patient instructions): Abdominal Pain (ED) Additional Instructions: Follow-up with Dr. Vargas. Return to the ER for any new or worsening concerns. Prescriptions: Omeprazole 20 mg PO DAILY #30 cap Is patient prescribed a controlled substance at d/c from ED?: No Referrals: Nonstaff,Physician [Primary Care Provider] - 1-2 days Jamil Vargas MD [STAFF PHYSICIAN] - 1-2 days Time of Disposition: 13:22
[2024-03-12] MEDS: SODIUM CHLORIDE 0.9% 1,000 ML IV STA (11:49)
[2024-03-12] MEDS: KETOROLAC 15 MG/ML 1 ML VIAL IVP STA (11:50)
[2024-03-12] MEDS: ONDANSETRON 4 MG/2 ML VIAL IVP STA (11:52)
[2024-03-12] MEDS: FAMOTIDINE 20 MG/2 ML VIAL IV STA (11:58)
[2024-03-12 11:59] LABS: Basophils % (A) 0 %; Eosinophils # (A) 0.1 k/uL (0-0.7); Eosinophils % (A) 1 %; HGB 14.8 gm/dL (11.4-16.0); Lymphocytes # (A) 1.9 k/uL (1.0-4.8); Lymphocytes % (A) 25 %; MCHC 34.4 g/dL (31.0-37.0); MCV 98.9 fL (80.0-100.0); Mean Platelet Volume 7.4; Monocytes # (A) 0.4 k/uL (0-1.0); Monocytes % (A) 5 %; Neutrophils # (A) 5.3 k/uL (1.3-7.7); Neutrophils % (A) 67 %; Platelet Count 263 k/uL (150-450); RBC 4.34 m/uL (3.80-5.40); RDW 11.6 % (11.5-15.5); WBC 7.9 k/uL (3.8-10.6)
[2024-03-12 12:00] LABS: Appearance,Urine Clear (Clear); Bilirubin,Urine Negative (Negative); Blood,Urine Negative (Negative); Color,Urine Colorless; Glucose,Urine (UA) Negative (Negative); Ketones,Urine Negative (Negative); Leukocyte Esterase,Urine Negative (Negative); Nitrite,Urine Negative (Negative); PH, Urine 6.5 (5.0-8.0); Protein,Urine Negative (Negative); Specific Gravity,Urine 1.003 (1.001-1.035); Urobilinogen,Urine <2.0 mg/dL (<2.0)
[2024-03-12 12:09] VITALS: RESP 20
[2024-03-12 12:09] LABS: ALT 30 U/L (4-34); AST 25 U/L (14-36); African American GFR (CKD) >90 (>60 ml/min/1.73 sqM); Albumin 4.5 g/dL (3.5-5.0); Alkaline Phosphatase 77 U/L (38-126); Amylase 48 U/L (30-110); Anion Gap 9 mmol/L; Blood Urea Nitrogen 9 mg/dL (7-17); Calcium 10.3 mg/dL (8.4-10.2); Carbon Dioxide 25 mmol/L (22-30); Chloride 102 mmol/L (98-107); Glucose 100 mg/dL (74-99); Lipase 47 U/L (23-300); Non-African American GFR(CKD) >90 (>60 ml/min/1.73 sqM); Potassium 4.1 mmol/L (3.5-5.1); Sodium 136 mmol/L (137-145); Total Bilirubin 0.7 mg/dL (0.2-1.3)
--- NOTE | 2024-03-12 12:50 | US ---
EXAMINATION TYPE: US gallbladder DATE OF EXAM: 03/12/2024 COMPARISON: CT 2023 CLINICAL INDICATION: Female, 48 years old with history of RUQ abd pain; RUQ abdominal pain x 1 month. TECHNIQUE: Grayscale and color Doppler imaging of the right upper quadrant. FINDINGS: EXAM MEASUREMENTS: Liver Length: 13.2 cm Gallbladder Wall: 0.21 cm CBD: 0.40 cm Right Kidney: 10.6 x 4.2 x 4.2 cm MANAGER REAL ESTATE NOTES: Exam is limited due to gas. Pancreas: Limited visibility. Liver: Increased echogenicity. Coarsened echotexture. Gallbladder: *Appears dominant and measures 12.6 cm in length and 3.9 cm in width. No gallstones. No wall thickening. Evidence for sonographic Lieberman's sign: No CBD: wnl Right Kidney: No hydronephrosis or masses seen IMPRESSION: 1. No acute abdomen ultrasound abnormality [facility], Workstation: [facility], 03/12/2024 12:48 PM
[2024-03-12] MEDS: METOCLOPRAMIDE 5 MG/ML 2 ML VIAL IVP STA (13:16)
[2024-03-12] MEDS: PANTOPRAZOLE 40 MG/10 ML VIAL IVP STA (13:18)
[2024-03-12 13:21] VITALS: BP 132/86; PULSE 66
== END 2024-03-12 13:42 | disposition home or self-care (01) ==
LOC: EC 10:59
CPT/HCPCS: 36415; 76705; 80053; 81003; 82150; 83605; 83690; 85025; 93005; 96361; 96374; 96375; 99285

== ENCOUNTER → 2024-03-22 | Outpatient (CLI) | payer BC ==
--- NOTE | 2024-03-22 11:38 | NM ---
Nuclear medicine hepatobiliary scan. HISTORY: Pain. DOSAGE: The patient received 5.04 mCi of Technetium 99m Choletec. FINDINGS: There is normal hepatic extraction. The gallbladder is seen by 90 minutes. There is bilia ry to bowel clearance by 20 minutes. IMPRESSION: 1. The gallbladder is not definitively seen until 90 minutes. Cholecystitis in the differential diagn osis correlate clinically. [facility], , 03/22/2024 11:36 AM
== END | disposition home or self-care (01) ==
LOC: RADNMMAIN 06:45
PROVIDERS: ATTEND Surgery
DX: K81.1 Chronic cholecystitis (principal)
CPT/HCPCS: 78226

== ENCOUNTER 2024-03-23 18:48 | Observation (INO) | payer BC ==
[2024-03-23 19:58] LABS: Basophils % (A) 0 %; Eosinophils # (A) 0.2 k/uL (0-0.7); Eosinophils % (A) 2 %; HCT 46.9 % (34.0-46.0); HGB 15.8 gm/dL (11.4-16.0); Lymphocytes # (A) 2.6 k/uL (1.0-4.8); Lymphocytes % (A) 31 %; MCH 34.3 pg (25.0-35.0); MCHC 33.7 g/dL (31.0-37.0); MCV 101.7 fL (80.0-100.0); Mean Platelet Volume 7.5; Monocytes # (A) 0.4 k/uL (0-1.0); Monocytes % (A) 5 %; Neutrophils # (A) 5.1 k/uL (1.3-7.7); Neutrophils % (A) 60 %; Platelet Count 303 k/uL (150-450); RBC 4.61 m/uL (3.80-5.40); RDW 12.1 % (11.5-15.5); WBC 8.5 k/uL (3.8-10.6)
[2024-03-23 20:12] LABS: INR 1.1 (<1.2); Partial Thromboplastin Time 25.3 sec (22.0-30.0); Prothrombin Time 11.5 sec (10.0-12.5)
[2024-03-23 20:13] LABS: ALT 28 U/L (4-34); AST 24 U/L (14-36); Albumin 4.9 g/dL (3.5-5.0); Alkaline Phosphatase 70 U/L (38-126); Amylase 50 U/L (30-110); Anion Gap 10 mmol/L; Blood Urea Nitrogen 15 mg/dL (7-17); Calcium 10.8 mg/dL (8.4-10.2); Carbon Dioxide 26 mmol/L (22-30); Chloride 100 mmol/L (98-107); Glucose 105 mg/dL (74-99); Lipase 62 U/L (23-300); Potassium 4.4 mmol/L (3.5-5.1); Sodium 136 mmol/L (137-145); Total Bilirubin 0.5 mg/dL (0.2-1.3); Total Protein 7.6 g/dL (6.3-8.2)
--- NOTE | 2024-03-23 20:14 | ED ---
Abdominal Pain HPI - General Source: patient, RN notes reviewed, old records reviewed Mode of arrival: ambulatory Limitations: no limitations <Sravanthi Bartlett - Last Filed: 03/23/24 20:13> <Jason East - Last Filed: 03/23/24 22:43> - General Chief Complaint: Abdominal Pain Stated Complaint: Gall bladder complications Time Seen by Provider: 03/23/24 20:13 - History of Present Illness Initial Comments: Quick note: 48-year-old female presenting to the ER with a chief complaint of right upper quadrant abdominal pain. Patient is following up with Dr. Vargas for biliary colic and cholecystitis. Patient underwent HIDA scan yesterday and states gallbladder was unable to be visualized. Patient reports after eating cheese this afternoon she had an increase in right upper quadrant abdominal pain. No fevers. No other complaints. (Sravanthi Bartlett) - Related Data Home Medications Medication Instructions Recorded Confirmed Albuterol Sulfate [Proair 1 puff IN DAILY PRN 03/09/24 03/09/24 Digihaler] Citalopram Hydrobromide [CeleXA] 20 mg PO HS 03/09/24 03/09/24 Clotrimazole 10 mg PO QID 03/09/24 03/09/24 Dextroamphetamine/Amphetamine 20 mg PO QAM 03/09/24 03/09/24 [Adderall] Famotidine [Pepcid] 20 mg PO QAM 03/09/24 03/09/24 Fexofenadine HCl [Lacey Allergy] 180 mg PO DAILY 03/09/24 03/09/24 Fluconazole [Diflucan] 200 mg PO DAILY 03/09/24 03/09/24 L.acidoph,Paracasei, B.lactis 1 cap PO DAILY 03/09/24 03/09/24 [Probiotic] Multivitamins, Thera [Multivitamin 1 tab PO DAILY 03/09/24 03/09/24 (formulary)] Previous Rx's Medication Instructions Recorded Omeprazole 20 mg PO DAILY #30 cap 03/12/24 Allergies Allergy/AdvReac Type Severity Reaction Status Date / Time codeine Allergy Itching Verified 03/12/24 11:14 cephalexin [From Keflex] AdvReac Diarrhea Verified 03/12/24 11:14 Review of Systems ROS Other: All systems not noted in ROS Statement are negative. <Sravanthi Bartlett - Last Filed: 03/23/24 20:13> ROS Other: All systems not noted in ROS Statement are negative. <Jason East - Last Filed: 03/23/24 22:43> ROS Statement: Those systems with pertinent positive or pertinent negative responses have been documented in the HPI. Past Medical History Past Medical History: GERD/Reflux Additional Past Medical History / Comment(s): CURRENT TX FOR YEAST INFECTION. PROAIR FOR ALLERGY SYMPTOMS History of Any Multi-Drug Resistant Organisms: None Reported Past Surgical History: Appendectomy, Hernia Repair Past Anesthesia/Blood Transfusion Reactions: No Reported Reaction Past Psychological History: No Psychological Hx Reported Smoking Status: Current every day smoker Past Alcohol Use History: Occasional Past Drug Use History: None Reported <Sravanthi Bartlett - Last Filed: 03/23/24 20:13> General Exam Limitations: no limitations <Sravanthi Bartlett - Last Filed: 03/23/24 20:13> General appearance: alert, in no apparent distress Head exam: Present: atraumatic, normocephalic Eye exam: Present: normal appearance, PERRL ENT exam: Present: normal exam Neck exam: Present: normal inspection. Absent: tenderness, meningismus Respiratory exam: Present: normal lung sounds bilaterally. Absent: respiratory distress, wheezes Cardiovascular Exam: Present: regular rate, normal rhythm GI/Abdominal exam: Present: tenderness (RUQ) Extremities exam: Present: normal inspection, normal capillary refill Neurological exam: Present: alert, oriented X3, CN II-XII intact. Absent: motor sensory deficit Psychiatric exam: Present: normal affect, normal mood Skin exam: Present: warm, dry, intact, normal color <Jason East - Last Filed: 03/23/24 22:43> - General Exam Comments Initial Comments: Visual Physical Exam Vital signs reviewed General: Well-appearing, nontoxic, no acute distress. Head: Normocephalic, atraumatic Eyes: PERRLA, EOMI ENT: Airway patent Chest: Nonlabored breathing Skin: No visual rash, normal skin tone Neuro: Alert and oriented 3 Musculoskeletal: No gross abnormalities (Sravanthi Bartlett) Course Vital Signs 03/23/24 03/23/24 19:16 22:16 Temperature 97.6 F Pulse Rate 96 70 Respiratory 16 18 Rate Blood Pressure 108/79 142/97 O2 Sat by Pulse 98 98 Oximetry Medical Decision Making - Lab Data Result diagrams: 03/23/24 19:20 <Sravanthi Bartlett - Last Filed: 03/23/24 20:13> - Lab Data Result diagrams: 03/23/24 19:20 03/23/24 19:20 <Jason East Ignacio - Last Filed: 03/23/24 22:43> - Medical Decision Making I performed the quick note portion of this chart. Electronically signed by Sravanthi Bartlett PA-C (Sravanthi Bartlett) Was pt. sent in by a medical professional or institution (STONEY Patel, DIRECTOR GRAPHICS, urgent care, hospital, or senior care...) When possible be specific @ -No Did you speak to anyone other than the patient for history (EMS, parent, family, police, friend...)? What history was obtained from this source @ -No Did you review nursing and triage notes (agree or disagree)? Why? @ -I reviewed and agree with nursing and triage notes Were old charts reviewed (outside hosp., previous admission, EMS record, old EKG, old radiological studies, urgent care reports/EKG's, senior care records)? Report findings @ -No old charts were reviewed Differential Abdominal Pain Women: Appendicitis, Cholecystitis, diverticulosis, ischemic bowel, pancreatitis, hepatitis, UTI, gastroenteritis, AAA, incarcerated hernia, bowel obstruction, constipation, inflammatory bowel, hepatitis, peptic ulcer disease, splenic infarction, perforated viscus, vulvitis, ovarian torsion, PID, kidney stone, placenta abruption, this is not meant to be an all-inclusive list EKG interpreted by me (3pts min.). @ -Sinus rhythm rate of 84, ID interval 134, QRS duration 84, QTc [address] segment elevation. X-rays interpreted by me (1pt min.). @ -None done CT interpreted by me (1pt min.). @ -None done U/S interpreted by me (1pt. min.). @ -US RUQ:Acute cholecystitis What testing was considered but not performed or refused? (CT, X-rays, U/S, labs)? Why? @ -None What meds were considered but not given or refused? Why? @ -None Did you discuss the management of the patient with other professionals (professionals i.e. DrLainey, PA, DIRECTOR GRAPHICS, lab, RT, psych nurse, social services manager, engine lathe operator, teacher, submarine advisory team watch officer, supportive employment case manager)? Give summary @Dr. Vargas Was smoking cessation discussed for >3mins.? @ -No Was critical care preformed (if so, how long)? @ -No Were there social determinants of health that impacted care today? How? (Homelessness, low income, unemployed, alcoholism, drug addiction, transportation, low edu. Level, literacy, decrease access to med. care, prison, rehab)? @ -No Was there de-escalation of care discussed even if they declined (Discuss DNR or withdrawal of care, Hospice)? DNR status @ -No What co-morbidities impacted this encounter? (DM, HTN, Smoking, COPD, CAD, C ancer, CVA, ARF, Chemo, Hep., AIDS, mental health diagnosis, sleep apnea, morbid obesity)? @ -None Was patient admitted / discharged? Hospital course, mention meds given and route, prescriptions, significant lab abnormalities, going to OR and other pertinent info. @ 48-year-old female with right upper quadrant pain, ultrasound positive for acute cholecystitis. Patient started on antibiotics and admitted to general surgery. Undiagnosed new problem with uncertain prognosis? @ -No Drug Therapy requiring intensive monitoring for toxicity (Heparin, Nitro, Insulin, Cardizem)? @ -No Were any procedures done? @ -No Diagnosis/symptom? @ -[Acute cholecystitis Acute, or Chronic, or Acute on Chronic? @ -Acute Uncomplicated (without systemic symptoms) or Complicated (systemic symptoms)? @ -Default Side effects of treatment? @ -No Exacerbation, Progression, or Severe Exacerbation? @ -No Poses a threat to life or bodily function? How? (Chest pain, [place], [place], pneumonia, PE, COPD, DKA, ARF, appy, cholecystitis, CVA, Diverticulitis, Homicidal, Suicidal, threat to staff... and all critical care pts) @ -Yes, sepsis (Jason East) - Lab Data Lab Results 03/23/24 03/23/24 03/23/24 Range/Units 19:20 19:20 19:20 WBC 8.5 (3.8-10.6) k/uL RBC 4.61 (3.80-5.40) m/uL Hgb 15.8 (11.4-16.0) gm/dL Hct 46.9 H (34.0-46.0) % MCV 101.7 H (80.0-100.0) fL MCH 34.3 (25.0-35.0) pg MCHC 33.7 (31.0-37.0) g/dL RDW 12.1 (11.5-15.5) % Plt Count 303 (150-450) k/uL MPV 7.5 Neutrophils % 60 % Lymphocytes % 31 % Monocytes % 5 % Eosinophils % 2 % Basophils % 0 % Neutrophils # 5.1 (1.3-7.7) k/uL Lymphocytes # 2.6 (1.0-4.8) k/uL Monocytes # 0.4 (0-1.0) k/uL Eosinophils # 0.2 (0-0.7) k/uL Basophils # 0.0 (0-0.2) k/uL PT 11.5 (10.0-12.5) sec INR 1.1 (<1.2) APTT 25.3 (22.0-30.0) sec Sodium 136 L (137-145) mmol/L Potassium 4.4 (3.5-5.1) mmol/L Chloride 100 (98-107) mmol/L Carbon Dioxide 26 (22-30) mmol/L Anion Gap 10 mmol/L BUN 15 (7-17) mg/dL Creatinine 0.73 (0.52-1.04) mg/dL Est GFR (CKD-EPI)AfAm >90 (>60 ml/min/1.73 sqM) Est GFR (CKD-EPI)NonAf >90 (>60 ml/min/1.73 sqM) Glucose 105 H (74-99) mg/dL Plasma Lactic Acid David (0.7-2.0) mmol/L Calcium 10.8 H (8.4-10.2) mg/dL Total Bilirubin 0.5 (0.2-1.3) mg/dL AST 24 (14-36) U/L ALT 28 (4-34) U/L Alkaline Phosphatase 70 (38-126) U/L Troponin I (0.000-0.034) ng/mL Total Protein 7.6 (6.3-8.2) g/dL Albumin 4.9 (3.5-5.0) g/dL Amylase 50 (30-110) U/L Lipase 62 (23-300) U/L 03/23/24 03/23/24 Range/Units 19:20 19:20 WBC (3.8-10.6) k/uL RBC (3.80-5.40) m/uL Hgb (11.4-16.0) gm/dL Hct (34.0-46.0) % MCV (80.0-100.0) fL MCH (25.0-35.0) pg MCHC (31.0-37.0) g/dL RDW (11.5-15.5) % Plt Count (150-450) k/uL MPV Neutrophils % % Lymphocytes % % Monocytes % % Eosinophils % % Basophils % % Neutrophils # (1.3-7.7) k/uL Lymphocytes # (1.0-4.8) k/uL Monocytes # (0-1.0) k/uL Eosinophils # (0-0.7) k/uL Basophils # (0-0.2) k/uL PT (10.0-12.5) sec INR (<1.2) APTT (22.0-30.0) sec Sodium (137-145) mmol/L Potassium (3.5-5.1) mmol/L Chloride (98-107) mmol/L Carbon Dioxide (22-30) mmol/L Anion Gap mmol/L BUN (7-17) mg/dL Creatinine (0.52-1.04) mg/dL Est GFR (CKD-EPI)AfAm (>60 ml/min/1.73 sqM) Est GFR (CKD-EPI)NonAf (>60 ml/min/1.73 sqM) Glucose (74-99) mg/dL Plasma Lactic Acid David 0.9 (0.7-2.0) mmol/L Calcium (8.4-10.2) mg/dL Total Bilirubin (0.2-1.3) mg/dL AST (14-36) U/L ALT (4-34) U/L Alkaline Phosphatase (38-126) U/L Troponin I <0.012 (0.000-0.034) ng/mL Total Protein (6.3-8.2) g/dL Albumin (3.5-5.0) g/dL Amylase (30-110) U/L Lipase (23-300) U/L Disposition <Sravanthi Bartlett - Last Filed: 03/23/24 20:13> Is patient prescribed a controlled substance at d/c from ED?: No Time of Disposition: 22:43 <Jason East - Last Filed: 03/23/24 22:43> Clinical Impression: Acute cholecystitis Disposition: ADMITTED IP TO THIS HOSP Condition: Stable Referrals: Alhaji Guzman Jr, DO [Primary Care Provider] - 1-2 days
[2024-03-23 20:15] LABS: African American GFR (CKD) >90 (>60 ml/min/1.73 sqM); Non-African American GFR(CKD) >90 (>60 ml/min/1.73 sqM)
--- NOTE | 2024-03-23 22:08 | US ---
EXAMINATION TYPE: US gallbladder DATE OF EXAM: 03/23/2024 COMPARISON: 03/12/2024 US, 03/22/24 NM CLINICAL INDICATION: Female, 48 years old with history of abd pain ruq; RUQ abd pain radiating to carlos eduardo ulder. Hx appendectomy. Nausea. TECHNIQUE: Grayscale and color Doppler imaging of the right upper quadrant was performed. FINDINGS: EXAM MEASUREMENTS: Liver Length: 13.7 cm Gallbladder Wall: 0.2 cm CBD: 0.3 cm Right Kidney: 8.6 x 4.2 x 3.6 cm CLASSROOM TEACHER NOTES: Pancreas: visualized portions wnl, tail obscured by gas Liver: wnl Gallbladder: Hydropic measuring 12cm in length. There is a 0.6cm echogenic area seen within. wall w nl Evidence for sonographic Lieberman's sign: no CBD: wnl Right Kidney: wnl IMPRESSION: 1. Distended gallbladder without wall thickening or pericholecystic fluid. Correlate for signs and s ymptoms of cholecystitis. 2. Cholelithiasis versus tumefactive sludge. [facility], Workstation: [id number], 03/23/2024 10:06 PM
[2024-03-23] MEDS: ONDANSETRON 4 MG/2 ML VIAL IVP STA (22:23)
[2024-03-23] MEDS: SODIUM CHLORIDE 0.9% 1,000 ML IV SCH (22:24)
[2024-03-23] MEDS: SODIUM CHLORIDE 0.9% 500 ML 500 ML IV ONE (22:24)
[2024-03-23] MEDS: HYDROmorphone 0.5 MG/0.5 ML SYRINGE IVP STA (22:24)
[2024-03-23] MEDS ORDERED: NALOXONE 0.4 MG/ML 1 ML VIAL IV PRN (22:27)
[2024-03-24] MEDS: PIPERACILLIN-TAZOBACTAM 3.375 GM in SODIUM CHLORIDE 0.9% 100 ML IVPB SCH (00:46)
[2024-03-24 06:16] LABS: Appearance,Urine Clear (Clear); Bacteria,Urine Rare /hpf; Bilirubin,Urine Negative (Negative); Blood,Urine Negative (Negative); Color,Urine Colorless; Glucose,Urine (UA) Negative (Negative); Ketones,Urine Negative (Negative); Leukocyte Esterase,Urine Small (Negative); Nitrite,Urine Negative (Negative); PH, Urine 5.5 (5.0-8.0); Protein,Urine Negative (Negative); RBC,Urine 1 /hpf (0-5); Specific Gravity,Urine 1.013 (1.001-1.035); Squamous Epithelial Cell,Urine <1 /hpf (0-4); Urobilinogen,Urine <2.0 mg/dL (<2.0); WBC,Urine 11 /hpf (0-5)
--- NOTE | 2024-03-24 11:40 | P.GSHP ---
History of Present Illness H&P Date: 03/24/24 CHIEF COMPLAINT: Abdominal pain HISTORY OF PRESENT ILLNESS: This is a 48-year-old female who presented to the ER with complaints of right upper quadrant abdominal pain. She reports coming to the ER twice this month for similar symptoms. Patient had gallbladder ultrasound that reported distended gallbladder. Also evidence of cholelithiasis versus sludge. HIDA scan reported gallbladder not definitively seen until 90 minutes. Patient reports she has been dealing with right upper quadrant pain for months. Yesterday after eating cheese the pain increased severely. Patient came into the ER for further evaluation. She is diagnosed with acute cholecystitis. And is scheduled for laparoscopic cholecystectomy today. Surgical history includes appendectomy and bilateral inguinal hernia repair. Patient denies any cardiac history. Denies being on any blood thinners. PAST MEDICAL HISTORY: GERD PAST SURGICAL HISTORY: Appendectomy, bilateral inguinal hernia pair MEDICATIONS: See below ALLERGIES: See below SOCIAL HISTORY: No illicit drug use. Daily smoker REVIEW OF SYSTEMS: CONSTITUTIONAL: Denies fever or chills. HEENT: Denies blurred vision, vision changes, or eye pain. Denies hemoptysis CARDIOVASCULAR: Denies chest pain or pressure. RESPIRATORY: No shortness of breath. GASTROINTESTINAL: See HPI for pertinent findings HEMATOLOGIC: Denies bleeding disorders. GENITOURINARY: Denies any blood in urine or increased urinary frequency. SKIN: Denies pruitis. Denies rash. PHYSICAL EXAM: VITAL SIGNS: Reviewed GENERAL: Well-developed in no acute distress. HEENT: No sclera icterus. Extraocular movements grossly intact. Moist buccal mucosa. Head is atraumatic, normocephalic. No nasal drainage. ABDOMEN: Soft. Nondistended. Tenderness palpation to right upper quadrant NEUROLOGIC: Alert and oriented. Cranial nerves II through XII grossly intact. LABORATORY DATA: WBC 8.5 Hgb 15.8 platelets 303 INR 1.1 Sodium 136 potassium 4.4 creatinine 0.73 Lactic acid 0.9 LFTs are normal Lipase 62 Urine hCG not detected IMAGING: Gallbladder ultrasound HIDA scan results as stated above ASSESSMENT: 1. Acute cholecystitis with gallbladder ultrasound reporting distended gallbladder with cholelithiasis versus sludge. HIDA reported gallbladder not definitively seen until 90 minutes PLAN: -Patient scheduled for laparoscopic cholecystectomy today with Dr. Vargas -Keep patient n.p.o. -Continue IV antibiotics -Continue IV fluids -Continue pain management Physician Malt Specifications Control Assistant note has been reviewed by physician. Signing provider agrees with the documented findings, assessment, and plan of care. Past Medical History Past Medical History: GERD/Reflux Additional Past Medical History / Comment(s): CURRENT TX FOR YEAST INFECTION. PROAIR FOR ALLERGY SYMPTOMS History of Any Multi-Drug Resistant Organisms: None Reported Past Surgical History: Appendectomy, Hernia Repair Past Anesthesia/Blood Transfusion Reactions: No Reported Reaction Past Psychological History: No Psychological Hx Reported Smoking Status: Current every day smoker Past Alcohol Use History: Occasional Past Drug Use History: None Reported Medications and Allergies Home Medications Medication Instructions Recorded Confirmed Type Citalopram Hydrobromide [CeleXA] 20 mg PO HS 03/09/24 03/24/24 History Dextroamphetamine/Amphetamine 20 mg PO BID 03/09/24 03/24/24 History [Adderall] Fexofenadine HCl [Lacey Allergy] 180 mg PO DAILY 03/09/24 03/24/24 History L.acidoph,Paracasei, B.lactis 1 cap PO DAILY 03/09/24 03/24/24 History [Probiotic] Multivitamins, Thera [Multivitamin 1 tab PO DAILY 03/09/24 03/24/24 History (formulary)] Omeprazole 20 mg PO DAILY #30 cap 03/12/24 03/24/24 Rx Ondansetron [Zofran] 4 mg PO Q6H PRN 03/24/24 03/24/24 History Psyllium Husk [Fiber Capsule] 0.4 gm PO DAILY 03/24/24 03/24/24 History Simethicone [Gas-X] 125 mg PO TID 03/24/24 03/24/24 History Allergies Allergy/AdvReac Type Severity Reaction Status Date / Time codeine Allergy Itching Verified 03/24/24 07:33 cephalexin [From Keflex] AdvReac Diarrhea Verified 03/24/24 07:33 Surgical - Exam Vital Signs Temp Pulse Resp BP Pulse Ox 97.6 F 96 16 108/79 98 03/23/24 19:16 03/23/24 19:16 03/23/24 19:16 03/23/24 19:16 03/23/24 19:16 Results - Labs 03/23/24 19:20 03/23/24 19:20 Abnormal Lab Results - Last 24 Hours (Table) 03/23/24 03/23/24 03/24/24 Range/Units 19:20 19:20 06:06 Hct 46.9 H (34.0-46.0) % MCV 101.7 H (80.0-100.0) fL Sodium 136 L (137-145) mmol/L Glucose 105 H (74-99) mg/dL Calcium 10.8 H (8.4-10.2) mg/dL Ur Leukocyte Esterase Small H (Negative) Urine WBC 11 H (0-5) /hpf Urine Bacteria Rare H (None) /hpf Diabetes panel 03/23/24 Range/Units 19:20 Sodium 136 L (137-145) mmol/L Potassium 4.4 (3.5-5.1) mmol/L Chloride 100 (98-107) mmol/L Carbon Dioxide 26 (22-30) mmol/L BUN 15 (7-17) mg/dL Creatinine 0.73 (0.52-1.04) mg/dL Glucose 105 H (74-99) mg/dL Calcium 10.8 H (8.4-10.2) mg/dL AST 24 (14-36) U/L ALT 28 (4-34) U/L Alkaline Phosphatase 70 (38-126) U/L Total Protein 7.6 (6.3-8.2) g/dL Albumin 4.9 (3.5-5.0) g/dL Calcium panel 03/23/24 Range/Units 19:20 Calcium 10.8 H (8.4-10.2) mg/dL Albumin 4.9 (3.5-5.0) g/dL Pituitary panel 03/23/24 Range/Units 19:20 Sodium 136 L (137-145) mmol/L Potassium 4.4 (3.5-5.1) mmol/L Chloride 100 (98-107) mmol/L Carbon Dioxide 26 (22-30) mmol/L BUN 15 (7-17) mg/dL Creatinine 0.73 (0.52-1.04) mg/dL Glucose 105 H (74-99) mg/dL Calcium 10.8 H (8.4-10.2) mg/dL Adrenal panel 03/23/24 Range/Units 19:20 Sodium 136 L (137-145) mmol/L Potassium 4.4 (3.5-5.1) mmol/L Chloride 100 (98-107) mmol/L Carbon Dioxide 26 (22-30) mmol/L BUN 15 (7-17) mg/dL Creatinine 0.73 (0.52-1.04) mg/dL Glucose 105 H (74-99) mg/dL Calcium 10.8 H (8.4-10.2) mg/dL Total Bilirubin 0.5 (0.2-1.3) mg/dL AST 24 (14-36) U/L ALT 28 (4-34) U/L Alkaline Phosphatase 70 (38-126) U/L Total Protein 7.6 (6.3-8.2) g/dL Albumin 4.9 (3.5-5.0) g/dL
[2024-03-24] MEDS: HYDROmorphone 1 MG/ML 1 ML SYRINGE IVP PRN (21:40)
[2024-03-25 06:44] LABS: Basophils % (A) 0 %; Eosinophils # (A) 0.1 k/uL (0-0.7); Eosinophils % (A) 2 %; HCT 42.8 % (34.0-46.0); HGB 13.7 gm/dL (11.4-16.0); Lymphocytes # (A) 1.4 k/uL (1.0-4.8); Lymphocytes % (A) 23 %; MCH 33.4 pg (25.0-35.0); MCV 104.3 fL (80.0-100.0); Macrocytosis Slight; Mean Platelet Volume 7.5; Monocytes # (A) 0.3 k/uL (0-1.0); Monocytes % (A) 5 %; Neutrophils # (A) 3.9 k/uL (1.3-7.7); Neutrophils % (A) 66 %; Platelet Count 210 k/uL (150-450); RDW 12.1 % (11.5-15.5); WBC 5.9 k/uL (3.8-10.6)
[2024-03-25 06:55] LABS: ALT 63 U/L (4-34); AST 62 U/L (14-36); African American GFR (CKD) 81 (>60 ml/min/1.73 sqM); Albumin 4.1 g/dL (3.5-5.0); Albumin/Globulin Ratio 1.9; Alkaline Phosphatase 80 U/L (38-126); Anion Gap 4 mmol/L; Blood Urea Nitrogen 12 mg/dL (7-17); Calcium 9.7 mg/dL (8.4-10.2); Carbon Dioxide 24 mmol/L (22-30); Chloride 110 mmol/L (98-107); Globulin 2.2 g/dL; Glucose 99 mg/dL (74-99); Non-African American GFR(CKD) 71 (>60 ml/min/1.73 sqM); Sodium 138 mmol/L (137-145); Total Bilirubin 0.8 mg/dL (0.2-1.3); Total Protein 6.3 g/dL (6.3-8.2)
[2024-03-25] MEDS: LACTATED RINGERS 1,000 ML BAG IV STA (08:18)
[2024-03-25] MEDS: IV FLUID CONTINUATION 1,000 ML IV ONE (08:22)
[2024-03-25] MEDS: ONDANSETRON 4 MG/2 ML VIAL IVP PRN (09:07)
[2024-03-25] MEDS: DEXAMETHASONE SOD PHOSPHATE 4 MG/ML 1 ML VIAL IVP STA (09:08)
[2024-03-25] MEDS: HEPARIN SODIUM,PORCINE 5,000 UNIT/ML 1 ML VIAL SQ STA (09:12)
[2024-03-25] MEDS ORDERED: NEOSTIGMINE 1 MG/ML 10 ML VIAL ONE (09:31)
[2024-03-25] MEDS ORDERED: LIDOCAINE 1% INJ 10MG/ML (20 ML MDV) ONE (09:31)
[2024-03-25] MEDS ORDERED: HYDROmorphone (PF) 1 MG/ML ONE (09:31)
[2024-03-25] MEDS ORDERED: KETOROLAC 15 MG/ML 1 ML VIAL ONE (09:31)
[2024-03-25] MEDS ORDERED: ROCURONIUM 10 MG/ML (5 ML VIAL) IV ONE (09:31)
[2024-03-25] MEDS ORDERED: ceFAZolin 1 GM/50 ML BAG (PMX) ONE (09:31)
[2024-03-25] MEDS ORDERED: GLYCOPYRROLATE 0.2 MG/ML 2 ML VIAL ONE (09:31)
[2024-03-25] MEDS ORDERED: SUCCINYLCHOLINE CHLORIDE 200 MG/10 ML VIAL IV ONE (09:31)
[2024-03-25] MEDS ORDERED: MIDAZOLAM 2 MG/2 ML VIAL ONE (09:31)
[2024-03-25] MEDS ORDERED: PROPOFOL 10 MG/ML 20 ML VIAL IV ONE (09:31)
[2024-03-25] MEDS ORDERED: fentaNYL (PF) 50 MCG/ML 2 ML AMP ONE (09:31)
[2024-03-25] MEDS: LIDOCAINE 1%-EPI 1:100,000 20 ML VIAL SQ ONE (09:58)
[2024-03-25] MEDS: SODIUM CHLORIDE 0.9% 50 ML with ceFAZolin 2,000 MG IV ONE (09:58)
--- NOTE | 2024-03-25 10:29 | P.OP ---
Date of Procedure: 03/25/24 Preoperative Diagnosis: Cholecystitis Postoperative Diagnosis: Cholecystitis Hydropic gallbladder Cholelithiasis Procedure(s) Performed: Laparoscopic cholecystectomy Anesthesia: JOSSELIN Surgeon: Jamil Vargas Estimated Blood Loss (ml): 5 Pathology: other (Gallbladder) Condition: stable Disposition: PACU Operative Findings: Inflamed gallbladder with hydrops Description of Procedure: The patient was placed on the operating table. The patient received a general endotracheal tube anesthesia. The patients abdomen was prepped and draped in the usual sterile fashion. Through an infraumbilical stab incision, the fascia of the anterior abdominal wall was grasped with a pair of Kochers and then the Veress needle was placed in the peritoneal cavity. Position of the Veress needle was confirmed with positive drop test. The abdomen was then insufflated. After adequate insufflation, the 10 mm trocar was placed in the peritoneal cavity. Following this the laparoscope was placed in the peritoneal cavity. The patient was placed in the head-up, right side up position and then a 5 mm trocar was placed in the right lateral and right subcostal position under direct visualization. A 8 mm trocar was placed in the epigastric position. The gallbladder was grasped in the fundus and infundibulum. Traction on the gallbladder was placed in the lateral and the cephalad positions. The triangle of Calot was visualized.. The cystic duct was bluntly dissected until the union of the cystic duct and common bile duct was seen. A critical view of safety was achieved. The cystic duct was then divided and sealed with the Harmonic scissors. A PDS Endoloop was then placed throughout the cystic duct stump. The cystic artery divided and sealed with the Harmonic scissors. The gallbladder was then removed from the liver bed using Harmonic scissors. The gallbladder was then extracted through the epigastric port site. Operative field was checked for any bleeding spots and Harmonic scissors was used to coagulate the liver bed. The abdomen was irrigated. The trocars were removed. The skin was closed using interrupted 3-0 Vicryl suture. Dermabond dressing were applied. The patient tolerated the procedure well.
[2024-03-25] MEDS: HYDROmorphone 0.5 MG/0.5 ML SYRINGE IVP PRN ×2 (10:50→11:11)
[2024-03-25] MEDS: CLINDAMYCIN 600 MG in DEXTROSE 5% IN WATER 50 ML IVPB STA (12:25)
[2024-03-25 13:47] VITALS: BMI 21.9
--- NOTE | 2024-03-25 14:45 | P.CONS ---
History of Present Illness - Reason for Consult Consult date: 03/25/24 Medical management Requesting physician: Jamil Vargas - Chief Complaint Status post laparoscopic cholecystectomy - History of Present Illness This is a 48-year-old female status post recent EGD and colonoscopy on 03/10/2024 with diagnosis of antral gastritis, diverticulosis, gastroesophageal reflux disease, ongoing nicotine dependence, appendectomy, hernia repair, status post laparoscopic cholecystectomy this morning. Complains of centralized abdominal pain/pressure, has not yet been out of bed. Denies chest pain, palpitations or shortness of breath. Maintaining O2 sats in the high 90s on room air. Vital signs stable. Hemoglobin decreased to 13.7, baseline 15.8, platelets 210. Electrolytes within normal limits, creatinine mildly trending up, 0.97. Minimal elevated AST, ALT. Review of Systems ROS Statement: Those systems with pertinent positive or pertinent negative responses have been documented in the HPI. ROS Other: All systems not noted in ROS Statement are negative. Past Medical History Past Medical History: GERD/Reflux Additional Past Medical History / Comment(s): CURRENT TX FOR YEAST INFECTION. PROAIR FOR ALLERGY SYMPTOMS History of Any Multi-Drug Resistant Organisms: None Reported Past Surgical History: Appendectomy, Hernia Repair Past Anesthesia/Blood Transfusion Reactions: No Reported Reaction Past Psychological History: No Psychological Hx Reported Smoking Status: Current every day smoker Past Alcohol Use History: Occasional Past Drug Use History: Marijuana - Past Family History Mother History Unknown: Yes Father Family Medical History: Hypertension Medications and Allergies Home Medications Medication Instructions Recorded Confirmed Type Citalopram Hydrobromide [CeleXA] 20 mg PO HS 03/09/24 03/24/24 History Dextroamphetamine/Amphetamine 20 mg PO BID 03/09/24 03/24/24 History [Adderall] Fexofenadine HCl [Lacey Allergy] 180 mg PO DAILY 03/09/24 03/24/24 History L.acidoph,Paracasei, B.lactis 1 cap PO DAILY 03/09/24 03/24/24 History [Probiotic] Multivitamins, Thera [Multivitamin 1 tab PO DAILY 03/09/24 03/24/24 History (formulary)] Omeprazole 20 mg PO DAILY #30 cap 03/12/24 03/24/24 Rx Ondansetron [Zofran] 4 mg PO Q6H PRN 03/24/24 03/24/24 History Psyllium Husk [Fiber Capsule] 0.4 gm PO DAILY 03/24/24 03/24/24 History Simethicone [Gas-X] 125 mg PO TID 03/24/24 03/24/24 History Acetaminophen Tab [Tylenol] 650 mg PO Q6H #30 tab 03/25/24 Rx Docusate [Colace] 100 mg PO BID #20 capsule 03/25/24 Rx Ibuprofen [Motrin] 600 mg PO Q6HR PRN #40 tab 03/25/24 Rx oxyCODONE HCL [OxyIR] 5 mg PO Q6H PRN 3 Days #10 tab 03/25/24 Rx Allergies Allergy/AdvReac Type Severity Reaction Status Date / Time codeine Allergy Itching Verified 03/24/24 07:33 cephalexin [From Keflex] AdvReac Diarrhea Verified 03/24/24 07:33 Physical Exam Vitals: Vital Signs Temp Pulse Pulse Pulse Pulse Resp BP 03/25/24 11:20 67 16 03/25/24 11:05 63 16 03/25/24 10:50 73 16 03/25/24 10:35 97.7 F 101 H 18 03/25/24 08:10 98.3 F 60 16 03/25/24 07:30 97.5 F L 68 16 03/25/24 06:27 98.1 F 63 17 03/25/24 02:00 98.1 F 63 17 03/24/24 20:42 68 18 110/78 03/24/24 20:00 97.5 F L 67 18 03/24/24 18:00 68 18 100/81 03/24/24 16:37 98.4 F 62 16 107/77 BP BP Pulse Ox 03/25/24 11:20 117/73 98 03/25/24 11:05 131/74 99 03/25/24 10:50 102/71 133/76 100 03/25/24 10:35 158/80 100 03/25/24 08:10 124/77 98 03/25/24 07:30 102/71 98 03/25/24 06:27 132/79 99 03/25/24 02:00 132/79 99 03/24/24 20:42 96 03/24/24 20:00 139/80 97 03/24/24 18:00 98 03/24/24 16:37 98 Intake and Output 03/24/24 03/25/24 03/25/24 22:59 06:59 14:59 Intake Total 950 Output Total 5 Balance 945 Intake: IV 950 Output: Estimated Blood Loss 5 Other: # Voids 1 1 Weight 56.245 kg 56.245 kg PHYSICAL EXAM: VITAL SIGNS: [Reviewed] GENERAL: Alert and oriented x 3, sitting up in bed, no acute distress. HEENT: Atraumatic, normocephalic ,conjunctivae normal. eyes normal. NECK: Supple, no JVD. CARDIOVASCULAR: S1, S2 regular. No murmur RESPIRATION: Unlabored, equal air entry, shallow breathing, diminished. ABDOMEN: Soft, status post surgery, laparoscopic sites well-approximated, no drainage LEGS: No edema. no swelling NERVOUS SYSTEM: Cranial N 2-12 grossly normal. No focal deficits.Strength and sensation grossly intact. Skin: Warm and dry, no rash. Results CBC & Chem 7: 03/25/24 05:41 03/25/24 05:41 Labs: Abnormal Lab Results - Last 24 Hours (Table) 03/25/24 03/25/24 Range/Units 05:41 05:41 MCV 104.3 H (80.0-100.0) fL Chloride 110 H (98-107) mmol/L AST 62 H (14-36) U/L ALT 63 H (4-34) U/L Assessment and Plan Assessment: Status post laparoscopic cholecystectomy Recent EGD and colonoscopy reporting antral gastritis, minimal diverticulosis on 03/10/2024 Gastroesophageal reflux disease Ongoing nicotine dependence Marijuana use Plan: Continue on current medication resume ,monitoring and symptomatic treatment. Pain management and DVT prophylaxis as per primary/general surgery. Aggressive pulmonary toileting with smoking cessation reinforced, incentive spirometer ordered and patient instructed on use and rationale. Patient has not yet been out of bed, encourage patient to sit at bedside and dangle, increasing ambulation as tolerated. Home meds have been reviewed and resumed accordingly. Close monitoring of hemoglobin, platelets and renal function with repeat labs ordered for a.m. The impression and plan of care has been dictated as directed. : I performed a history and examination of this patient, discussed the same with the dictator. I agree with the dictator's note ,documented as a scribe. Any additional findings or plans will be noted.
[2024-03-25] MEDS: PANTOPRAZOLE 40 MG/10 ML VIAL IVP SCH (15:46)
[2024-03-25] MEDS: NICOTINE 14MG/24HR PATCH TRANSDERM SCH (15:48)
[2024-03-25] MEDS ORDERED: PATIENT'S OWN (Dextroamphetamine/Amphetamine [Adderall] 20 MG Tablet) PO SCH (16:00)
[2024-03-25] MEDS: CITALOPRAM HYDROBROMIDE 20 MG TAB PO SCH (21:51)
[2024-03-26] MEDS: NON FORMULARY DRUG (Dextroamphetamine/Amphetamine [Adderall] 20 MG) PO SCH (08:10)
[2024-03-26] MEDS: LACTOBACILLUS ACIDOPHILUS/PECT 1 EACH CAPSULE PO SCH (08:22)
--- NOTE | 2024-03-26 09:39 | P.PN ---
Progress Note - Text Progress Note Date: 03/26/24 Patient is up walking the mckeon. She is not sure if she wants to go home today. On exam vital signs appear stable. Abdomen soft. Status post laparoscopic cholecystectomy for acute cholecystitis with hydropic gallbladder. Patient will decide after lunch if she wants to go home.
[2024-03-26 10:18] LABS: Basophils # (A) 0.02 X 10*3/uL (0.00-0.10); Basophils % (A) 0.2 %; Eosinophils # (A) 0.06 X 10*3/uL (0.04-0.35); Eosinophils % (A) 0.6 %; HGB 12.2 g/dL (12.0-15.0); Lymphocytes # (A) 2.01 X 10*3/uL (0.90-5.00); Lymphocytes % (A) 21.6 %; MCH 33.9 pg (27.0-32.0); MCHC 33.9 g/dL (32.0-37.0); Mean Platelet Volume 10.8 FL (9.5-12.2); Monocytes % (A) 6.5 %; NRBC Per 100 WBC 0 X 10*3/uL (0.00-0.01); Neutrophils # (A) 6.57 X 10*3/uL (1.80-7.70); Neutrophils % (A) 70.7 %; Platelet Count 198 X 10*3/uL (140-440); RDW 12.1 % (11.5-14.5)
[2024-03-26 10:36] LABS: Blood Urea Nitrogen 8.9 mg/dL (9.0-27.0); Calcium 9.3 mg/dL (8.7-10.3); Carbon Dioxide 24.6 mmol/L (21.6-31.8); Chloride 103 mmol/L (96-109); Glucose 91 mg/dL (70-110); Potassium 4.3 mmol/L (3.5-5.5); Sodium 138 mmol/L (135-145)
--- NOTE | 2024-03-26 12:12 | P.PN ---
Subjective Progress Note Date: 03/26/24 03/26/2024: Patient was reevaluated today and she is status post lap scopic cholecystectomy, postop day 1.Yesterday she is unable to go home she had significant nausea and felt very bloated. Today she is feeling slightly better. She is up walking the halls. She just recently passed gas. She has not had a bowel movement. She denies any chest pains pressures shortness breath. She does have some referred pain to her right shoulder.Signs are stable, she is afebrile.Labs today show hemoglobin of 12.2 at [place] 13.7 and original admission he was 15.8. There is no shift. Chemistries are essentially normal, BUN is 8.9 creatinine is 1.0 GFR is greater than 70 Objective - Vital Signs Vital signs: Vital Signs Temp 98.1 F 03/26/24 07:00 Pulse 70 03/26/24 07:00 Resp 17 03/26/24 07:00 BP 118/78 03/26/24 07:00 Pulse Ox 98 03/26/24 07:00 FiO2 Intake & Output 03/25/24 03/26/24 03/26/24 18:59 06:59 18:59 Intake Total 1250 118 Output Total 5 Balance 1245 118 Weight 56.245 kg Intake: IV 950 Intake, IV Titration 300 Amount Sodium Chloride 0.9% 1, 300 000 ml @ 75 mls/hr IV . [id number] [facility] Rx#:[id number] Oral 118 Output: Estimated Blood Loss 5 Other: Voiding Method Toilet Toilet # Voids 1 3 # Bowel Movements 0 - Exam General: The patient is awake and alert, in no distress, and does not appear acutely ill. Neck: The neck is supple, there is no thyromegaly, lymphadenopathy, tenderness or JVD. Cardiovascular: S1S2 is normal, There is a regular rate and rhythm. No murmur, rub or gallop is appreciated. Respiratory: Lungs are clear to auscultation bilaterally, respirations are non-labored, breath sounds are equal. Gastrointestinal: Soft, non-distended, There is no rebound or guarding present. Bowel sounds are unremarkable.Tenderness due to a recent abdominal surgery. Musculoskeletal: Normal ROM, no tenderness, There is no pedal edema. There is no calf tenderness or swelling. No cords were appreciated. Neurological: CN II-XII intact, there are no obvious motor or sensory deficits. Coordination appears grossly intact. Speech is normal. Skin: Skin is warm and dry and no rashes or lesions are noted. - Labs CBC & Chem 7: 03/26/24 05:38 03/26/24 05:38 Labs: Abnormal Lab Results - Last 24 Hours (Table) 03/26/24 03/26/24 Range/Units 05:38 05:38 RBC 3.60 L (4.10-5.20) X 10*6/uL Hct 36.0 L (37.2-46.3) % MCV 100.0 H (80.0-97.0) FL MCH 33.9 H (27.0-32.0) pg BUN 8.9 L (9.0-27.0) mg/dL BUN/Creatinine Ratio 8.90 L (12.00-20.00) Ratio Assessment and Plan (1) Gastro-esophageal reflux disease without esophagitis Current Visit: Yes Status: Acute Code(s): K21.9 - GASTRO-ESOPHAGEAL REFLUX DISEASE WITHOUT ESOPHAGITIS SNOMED Code(s): 963294379 (2) Acute cholecystitis Current Visit: Yes Status: Acute Code(s): K81.0 - ACUTE CHOLECYSTITIS SNOMED Code(s): 89638224 (3) Abdominal pain Current Visit: No Status: Acute Code(s): R10.9 - UNSPECIFIED ABDOMINAL PAIN SNOMED Code(s): 08691822 Plan: Medically she is stable, but her hemoglobin has dropped off since her surgery, we'll continue to monitor this. If she goes home later today we'll plan outpatient office laboratory studies., Given that she appears stable. Me dically she is cleared for discharge.
[2024-03-26] MEDS: DOCUSATE 100 MG CAP PO PRN (16:20)
[2024-03-26 20:59] LABS: HCT 37.6 % (34.0-46.0); HGB 12.2 gm/dL (11.4-16.0); MCH 34.1 pg (25.0-35.0); MCHC 32.5 g/dL (31.0-37.0); Macrocytosis Slight; Mean Platelet Volume 8.2; Platelet Count 193 k/uL (150-450); RBC 3.58 m/uL (3.80-5.40); RDW 12.1 % (11.5-15.5); WBC 7.6 k/uL (3.8-10.6)
--- NOTE | 2024-03-27 08:41 | P.PN ---
Subjective Progress Note Date: 03/27/24 Patient still has complaints of abdominal pain fatigue and diminished appetite. She states she feels too weak to go home. On exam vital signs appear stable. Abdomen soft. Status post laparoscopically stable for acute cholecystitis with hydropic gallbladder. We dissipate discharge home tomorrow. Objective - Vital Signs Vital signs: Vital Signs Temp 98.1 F 03/27/24 07:15 Pulse 70 03/27/24 07:55 Resp 17 03/27/24 07:55 BP 135/78 03/27/24 07:55 Pulse Ox 98 03/27/24 07:55 FiO2 Intake & Output 03/26/24 03/27/24 03/27/24 18:59 06:59 18:59 Intake Total 354 800 Balance 354 800 Intake: Oral 354 800 Other: Voiding Method Toilet Toilet # Voids 2 3 - Labs CBC & Chem 7: 03/26/24 20:42 03/26/24 05:38 Labs: Abnormal Lab Results - Last 24 Hours (Table) 03/26/24 03/26/24 03/26/24 Range/Units 05:38 05:38 20:42 RBC 3.60 L 3.58 L (4.10-5.20) X 10*6/uL Hct 36.0 L (37.2-46.3) % MCV 100.0 H 105.0 H (80.0-97.0) FL MCH 33.9 H (27.0-32.0) pg BUN 8.9 L (9.0-27.0) mg/dL BUN/Creatinine Ratio 8.90 L (12.00-20.00) Ratio
[2024-03-27 18:16] VITALS: RESP 17
[2024-03-28] MEDS ORDERED: ACETAMINOPHEN TAB 325 MG TAB PO PRN (08:29)
[2024-03-28] MEDS: KETOROLAC 15 MG/ML 1 ML VIAL IVP PRN (09:54)
[2024-03-28] MEDS: NYSTATIN 100,000 UNIT/ML SUSP 500,000 UNIT/5 ML CUP PO SCH (10:41)
--- NOTE | 2024-03-28 10:54 | P.PN ---
Subjective 03/26/2024: Patient was reevaluated today and she is status post lap scopic cholecystectomy, postop day 1.Yesterday she is unable to go home she had significant nausea and felt very bloated. Today she is feeling slightly better. She is up walking the halls. She just recently passed gas. She has not had a bowel movement. She denies any chest pains pressures shortness breath. She does have some referred pain to her right shoulder.Signs are stable, she is afebrile.Labs today show hemoglobin of 12.2 at [place] 13.7 and original admission he was 15.8. There is no shift. Chemistries are essentially normal, BUN is 8.9 creatinine is 1.0 GFR is greater than 70 March 28, 2024: Patient was not seen yesterday as she was expected go home, but due to her ongoing abdominal pain and nausea her discharge was deferred till today. This morning she complains of ongoing abdominal pain. She has not had a bowel movement and continues to feel bloated. She is up ambulating the halls quite a bit. She has an incentive spirometer at bedside that she is using. She is also complaining of some sore throat. Vitals are essentially normal, patient is afebrile, blood pressures minimally elevated pulse oximetry is normal. There are new laboratory studies for today. Objective - Vital Signs Vital signs: Vital Signs Temp 98.3 F 03/28/24 07:00 Pulse 75 03/28/24 07:00 Resp 17 03/28/24 07:00 BP 143/89 03/28/24 07:00 Pulse Ox 98 03/28/24 07:00 FiO2 Intake & Output 03/27/24 03/28/24 03/28/24 18:59 06:59 18:59 Intake Total 236 118 Balance 236 118 Intake: Oral 236 118 Other: Voiding Method Toilet Toilet Toilet # Voids 2 1 # Bowel Movements 0 - Exam General: The patient is awake and alert, in no distress, and does not appear acutely ill. Oropharynx: Posterior pharynx is erythematous, is requesting white plaque to the uvula. Neck: The neck is supple, there is no thyromegaly, lymphadenopathy, tenderness or JVD. Cardiovascular: S1S2 is normal, There is a regular rate and rhythm. No murmur, rub or gallop is appreciated. Respiratory: Lungs are clear to auscultation bilaterally, respirations are non-labored, breath sounds are equal. Gastrointestinal: Soft, non-distended, There is no rebound or guarding present. Bowel sounds are unremarkable.Tenderness due to a recent abdominal surgery. Musculoskeletal: Normal ROM, no tenderness, There is no pedal edema. There is no calf tenderness or swelling. No cords were appreciated. Neurological: CN II-XII intact, there are no obvious motor or sensory deficits. Coordination appears grossly intact. Speech is normal. Skin: Skin is warm and dry and no rashes or lesions are noted. - Labs CBC & Chem 7: 03/26/24 20:42 03/26/24 05:38 Assessment and Plan (1) Gastro-esophageal reflux disease without esophagitis Current Visit: Yes Status: Acute Code(s): K21.9 - GASTRO-ESOPHAGEAL REFLUX DISEASE WITHOUT ESOPHAGITIS SNOMED Code(s): 844692350 (2) Acute cholecystitis Current Visit: Yes Status: Acute Code(s): K81.0 - ACUTE CHOLECYSTITIS SNOMED Code(s): 77489543 (3) Abdominal pain Current Visit: No Status: Acute Code(s): R10.9 - UNSPECIFIED ABDOMINAL PAIN SNOMED Code(s): 03984092 (4) Thrush Current Visit: Yes Status: Acute Code(s): B37.0 - CANDIDAL STOMATITIS SNOMED Code(s): 77106383 Plan: We will add nystatin swish and swallow, will plan on her following up in the office next week Medically she is cleared for discharge.
[2024-03-28] MEDS ORDERED: LACTULOSE 20 GM/30 ML CUP PO ONE (11:03)
[2024-03-28] MEDS: SIMETHICONE 40 MG/0.6 ML DROPS 2,000 MG/30 ML BOTTLE PO SCH (12:20)
--- NOTE | 2024-03-28 15:02 | P.DS ---
Providers Date of admission: 03/23/24 22:29 Expected date of discharge: 03/28/24 Attending physician: Jamil Vargas Consults: 03/24/24 13:31 Consult Physician Routine Consulting Provider: Alhaji Guzman Jr Consult Reason/Comments: medical management Do you want consulting provider notified?: Yes Primary care physician: Alhaji Guzman [facility] Course: Discharge diagnosis 1. Cholecystitis 2. Hydropic gallbladder 3. Cholelithiasis Hospital course This is a 48-year-old female who presented with right upper quadrant abdominal pain. Patient had gallbladder ultrasound that reported distended gallbladder. Also evidence of cholelithiasis versus sludge. Patient is status post laparoscopic cholecystectomy. She is tolerating diet. She is having flatus. She did have a small bowel movement. She does complain of gas pains and pain on the left side abdomen. Pain is controlled. Afebrile. She has been ambulating. Vision sites clean dry and intact. Case reviewed with Dr. Vargas. Dr. Vargas has cleared patient for discharge. Patient is stable for discharge. Please refer to chart for any further details. Physician Senior Contract Specialist note has been reviewed by physician. Signing provider agrees with the documented findings, assessment, and plan of care. Patient Condition at Discharge: Stable Plan - Discharge Summary Discharge Rx Participant: No New Discharge Prescriptions: New Acetaminophen Tab [Tylenol] 650 mg PO Q6H #30 tab Docusate [Colace] 100 mg PO BID #20 capsule Ibuprofen [Motrin] 600 mg PO Q6HR PRN #40 tab PRN Reason: Pain oxyCODONE HCL [OxyIR] 5 mg PO Q6H PRN 3 Days #10 tab PRN Reason: Pain Continue Citalopram Hydrobromide [CeleXA] 20 mg PO HS L.acidoph,Paracasei, B.lactis [Probiotic] 1 cap PO DAILY Omeprazole 20 mg PO DAILY #30 cap Dextroamphetamine/Amphetamine [Adderall] 20 mg PO BID Fexofenadine HCl [Lacey Allergy] 180 mg PO DAILY Multivitamins, Thera [Multivitamin (formulary)] 1 tab PO DAILY Ondansetron [Zofran] 4 mg PO Q6H PRN PRN Reason: Nausea And Vomiting Simethicone [Gas-X] 125 mg PO TID Psyllium Husk [Fiber Capsule] 0.4 gm PO DAILY Discharge Medication List Citalopram Hydrobromide [CeleXA] 20 mg PO HS 03/09/24 [History] Dextroamphetamine/Amphetamine [Adderall] 20 mg PO BID 03/09/24 [History] Fexofenadine HCl [Lacey Allergy] 180 mg PO DAILY 03/09/24 [History] L.acidoph,Paracasei, B.lactis [Probiotic] 1 cap PO DAILY 03/09/24 [History] Multivitamins, Thera [Multivitamin (formulary)] 1 tab PO DAILY 03/09/24 [History] Omeprazole 20 mg PO DAILY #30 cap 03/12/24 [Rx] Ondansetron [Zofran] 4 mg PO Q6H PRN 03/24/24 [History] Psyllium Husk [Fiber Capsule] 0.4 gm PO DAILY 03/24/24 [History] Simethicone [Gas-X] 125 mg PO TID 03/24/24 [History] Acetaminophen Tab [Tylenol] 650 mg PO Q6H #30 tab 03/25/24 [Rx] Docusate [Colace] 100 mg PO BID #20 capsule 03/25/24 [Rx] Ibuprofen [Motrin] 600 mg PO Q6HR PRN #40 tab 03/25/24 [Rx] oxyCODONE HCL [OxyIR] 5 mg PO Q6H PRN 3 Days #10 tab 03/25/24 [Rx] Follow up Appointment(s)/Referral(s): Alhaji Guzman Jr, DO [Primary Care Provider] - 1 Week Jamil Vargas MD [STAFF PHYSICIAN] - 1 Week Patient Instructions/Handouts: Laparoscopic Cholecystectomy (DC) Activity/Diet/Wound Care/Special Instructions: No driving while taking OxyIR No lifting over 10 pounds Shower daily. No soaking or tub baths for 2 weeks Very light activity until you are reevaluated at your follow up appointment with your surgeon Discharge Disposition: HOME SELF-CARE
[2024-03-28 15:46] VITALS: BP 137/84; PULSE 67; TEMP 98.4
[2024-03-28] MEDS: HYDROcodone/APAP 5-325MG 1 EACH TAB PO PRN (16:31)
[2024-03-28] MEDS: KETOROLAC 15 MG/ML 1 ML VIAL IVP SCH (16:33)
[2024-03-28] MEDS ORDERED: DOCUSATE 100 MG CAP PO SCH (21:00)
== END 2024-03-28 17:11 | disposition home or self-care (01) ==
LOC: EC 18:48 → 6NMEDSUR 22:29
PROVIDERS: ADMIT Surgery; ATTEND Surgery
DX: K80.10 Calculus of gallbladder with chronic cholecystitis without obstruction (principal); K82.1 Hydrops of gallbladder; F17.200 Nicotine dependence, unspecified, uncomplicated; K21.9 Gastro-esophageal reflux disease without esophagitis; B37.0 Candidal stomatitis
CPT/HCPCS: 47562; 96376 ×5; 96366 ×5; 96375 ×3; 96361; 96365; 99285; 36415; 93005; 88304; 80053 ×2; 80048; 82150; 83605; 83690; 84484; 85025 ×3; 85027; 85610; 85730; 81001; 81025; 76705; G0378 ×6; J2543 ×5; J2250; J0330; J1644; J1100; J2710; J2405 ×3; J0690 ×2; J2003; J3010; J1171 ×8; J1885 ×2; J2704; J1596; J2470 ×4

== ENCOUNTER 2024-04-05 08:08 | Emergency (ER) | payer BC ==
[2024-04-05 08:49] LABS: Basophils % (A) 0 %; Eosinophils # (A) 0.2 k/uL (0-0.7); Eosinophils % (A) 2 %; HGB 14.3 gm/dL (11.4-16.0); Lymphocytes # (A) 1.6 k/uL (1.0-4.8); Lymphocytes % (A) 17 %; MCH 33.5 pg (25.0-35.0); MCHC 33.3 g/dL (31.0-37.0); MCV 100.7 fL (80.0-100.0); Mean Platelet Volume 7.3; Monocytes # (A) 0.4 k/uL (0-1.0); Monocytes % (A) 4 %; Neutrophils # (A) 7.3 k/uL (1.3-7.7); Neutrophils % (A) 76 %; Platelet Count 254 k/uL (150-450); RBC 4.27 m/uL (3.80-5.40); RDW 12.4 % (11.5-15.5); WBC 9.7 k/uL (3.8-10.6)
--- NOTE | 2024-04-05 09:00 | XR ---
EXAMINATION TYPE: XR cervical spine comp DATE OF EXAM: 04/05/2024 8:55 AM COMPARISON: None CLINICAL INDICATION: Female, 48 years old with history of pain; [facility] TECHNIQUE: The cervical spine was imaged in frontal, lateral, odontoid and bilateral oblique. FINDINGS: The osseous structures show normal alignment without evidence of an acute fracture. No significant ve rtebral body osteophytes or facet joint arthropathy. The intervertebral disk spaces are preserved. Pe dicles are intact. Soft tissues are within normal limits. The odontoid appears intact. IMPRESSION: 1. No fracture or dislocation. [facility], , 04/05/2024 8:58 AM
[2024-04-05 09:08] LABS: ALT 34 U/L (4-34); AST 28 U/L (14-36); African American GFR (CKD) >90 (>60 ml/min/1.73 sqM); Albumin 4.4 g/dL (3.5-5.0); Alkaline Phosphatase 77 U/L (38-126); Anion Gap 6 mmol/L; Blood Urea Nitrogen 9 mg/dL (7-17); Carbon Dioxide 31 mmol/L (22-30); Chloride 101 mmol/L (98-107); Glucose 99 mg/dL (74-99); Lipase 32 U/L (23-300); Non-African American GFR(CKD) >90 (>60 ml/min/1.73 sqM); Potassium 4.4 mmol/L (3.5-5.1); Sodium 138 mmol/L (137-145); Total Bilirubin 0.5 mg/dL (0.2-1.3)
[2024-04-05] MEDS: SODIUM CHLORIDE 0.9% 1,000 ML IV STA (09:13)
[2024-04-05] MEDS: HYDROmorphone 0.5 MG/0.5 ML SYRINGE IVP STA (09:13)
[2024-04-05] MEDS: ONDANSETRON 4 MG/2 ML VIAL IVP STA (09:14)
[2024-04-05] MEDS: DEXAMETHASONE SOD PHOSPHATE 10 MG/ML 1 ML VIAL IVP STA (09:14)
[2024-04-05] MEDS: KETOROLAC 15 MG/ML 1 ML VIAL IVP STA (09:14)
[2024-04-05 10:20] LABS: Appearance,Urine Clear (Clear); Bilirubin,Urine Negative (Negative); Blood,Urine Negative (Negative); Color,Urine Colorless; Glucose,Urine (UA) Negative (Negative); Ketones,Urine Negative (Negative); Leukocyte Esterase,Urine Negative (Negative); Nitrite,Urine Negative (Negative); Protein,Urine Negative (Negative); Specific Gravity,Urine 1.004 (1.001-1.035); Urobilinogen,Urine <2.0 mg/dL (<2.0)
--- NOTE | 2024-04-05 10:37 | ED ---
General Adult HPI - General Chief complaint: Recheck/Abnormal Lab/Rx Stated complaint: PO Surgery, left sided pain Time Seen by Provider: 04/05/24 08:10 Source: patient, RN notes reviewed Mode of arrival: wheelchair Limitations: no limitations - History of Present Illness Initial comments: 48-year-old female presents emergency department chief complaint of arm and neck pain. Patient states this has been going on for couple weeks now. Patient states that she had this pain prior to her gallbladder surgery. Patient states has not worsened. Patient states is positional she denies any chest pain or shortness of breath. States there is some numbness and tingling without any weakness. No headache. Patient also states that she has had some mild ab dominal pain without improving she did have her postsurgical follow-up which was normal. She states that she had some blood when she wiped after urinating but denies any associated pain or any flank pain. - Related Data Home Medications Medication Instructions Recorded Confirmed Citalopram Hydrobromide [CeleXA] 20 mg PO HS 03/09/24 03/24/24 Dextroamphetamine/Amphetamine 20 mg PO BID 03/09/24 03/24/24 [Adderall] Fexofenadine HCl [Lacey Allergy] 180 mg PO DAILY 03/09/24 03/24/24 L.acidoph,Paracasei, B.lactis 1 cap PO DAILY 03/09/24 03/24/24 [Probiotic] Multivitamins, Thera [Multivitamin 1 tab PO DAILY 03/09/24 03/24/24 (formulary)] Ondansetron [Zofran] 4 mg PO Q6H PRN 03/24/24 03/24/24 Psyllium Husk [Fiber Capsule] 0.4 gm PO DAILY 03/24/24 03/24/24 Simethicone [Gas-X] 125 mg PO TID 03/24/24 03/24/24 Previous Rx's Medication Instructions Recorded Omeprazole 20 mg PO DAILY #30 cap 03/12/24 Acetaminophen Tab [Tylenol] 650 mg PO Q6H #30 tab 03/25/24 Docusate [Colace] 100 mg PO BID #20 capsule 03/25/24 Ibuprofen [Motrin] 600 mg PO Q6HR PRN #40 tab 03/25/24 oxyCODONE HCL [OxyIR] 5 mg PO Q6H PRN 3 Days #10 tab 03/25/24 Cyclobenzaprine [Flexeril] 10 mg PO TID PRN #15 tab 04/05/24 predniSONE 50 mg PO DAILY #4 tab 04/05/24 Allergies Allergy/AdvReac Type Severity Reaction Status Date / Time codeine Allergy Itching Verified 04/05/24 08:13 cephalexin [From Keflex] AdvReac Diarrhea Verified 04/05/24 08:13 Review of Systems ROS Statement: Those systems with pertinent positive or pertinent negative responses have been documented in the HPI. ROS Other: All systems not noted in ROS Statement are negative. Past Medical History Past Medical History: GERD/Reflux Additional Past Medical History / Comment(s): CURRENT TX FOR YEAST INFECTION. PROAIR FOR ALLERGY SYMPTOMS History of Any Multi-Drug Resistant Organisms: None Reported Past Surgical History: Appendectomy, Hernia Repair Past Anesthesia/Blood Transfusion Reactions: No Reported Reaction Past Psychological History: No Psychological Hx Reported Smoking Status: Current every day smoker Past Alcohol Use History: Occasional Past Drug Use History: Marijuana - Past Family History Mother History Unknown: Yes Father Family Medical History: Hypertension General Exam Limitations: no limitations General appearance: alert, in no apparent distress Head exam: Present: atraumatic, normocephalic, normal inspection Eye exam: Present: normal appearance, PERRL, EOMI. Absent: scleral icterus, conjunctival injection, periorbital swelling ENT exam: Present: normal exam, mucous membranes moist Neck exam: Present: normal inspection, tenderness, full ROM. Absent: meningismus, lymphadenopathy Respiratory exam: Present: normal lung sounds bilaterally. Absent: respiratory distress, wheezes, rales, rhonchi, stridor Cardiovascular Exam: Present: regular rate, normal rhythm, normal heart sounds. Absent: systolic murmur, diastolic murmur, rubs, gallop, clicks GI/Abdominal exam: Present: soft, normal bowel sounds. Absent: distended, tenderness, guarding, rebound, rigid Course Vital Signs 04/05/24 04/05/24 08:09 09:12 Temperature 97.7 F Pulse Rate 88 63 Respiratory 18 18 Rate Blood Pressure 127/86 124/81 O2 Sat by Pulse 98 96 Oximetry EKG Findings - EKG Comments: EKG Findings:: EKG performed at 8: 25 sinus rhythm rate of 77 PA 133 QRS 83 QT/QTc 355/386 - EKG Results: EKG: interpreted by ELIZABETH Medical Decision Making - Medical Decision Making Was pt. sent in by a medical professional or institution (STONEY Patel, PEANUT FARMER, urgent care, hospital, or correction...) When possible be specific @ -No Did you speak to anyone other than the patient for history (EMS, parent, family, police, friend...)? What history was obtained from this source @ -No Did you review nursing and triage notes (agree or disagree)? Why? @ -I reviewed and agree with nursing and triage notes Were old charts reviewed (outside hosp., previous admission, EMS record, old EKG, old radiological studies, urgent care reports/EKG's, correction records)? Report findings @ -No old charts were reviewed Differential Diagnosis (chest pain, altered mental status, abdominal pain women, abdominal pain men, vaginal bleeding, weakness, fever, dyspnea, syncope, headache, dizziness, GI bleed, back pain, seizure, CVA, palpatations, mental health, musculoskeletal)? @ -Cervical radiculopathy, neck pain, left arm pain, MDM differential abdominal pain appointment EKG interpreted by me (3pts min.). @ -As above X-rays interpreted by me (1pt min.). @ -Cervical spine shows no acute process no malalignment CT interpreted by me (1pt min.). @ -None done U/S interpreted by me (1pt. min.). @ -None done What testing was considered but not performed or refused? (CT, X-rays, U/S, labs)? Why? @ -None What meds were considered but not given or refused? Why? @ -None Did you discuss the management of the patient with other professionals (professionals i.e. STONEY Patel, PEANUT FARMER, lab, RT, psych nurse, marriage and family social worker, jig fitter, teacher, bank compliance officer, immigration case worker)? Give summary @ -No Was smoking cessation discussed for >3mins.? @ -No Was critical care preformed (if so, how long)? @ -No Were there social determinants of health that impacted care today? How? (Karely elessness, low income, unemployed, alcoholism, drug addiction, transportation, low edu. Level, literacy, decrease access to med. care, retirement, rehab)? @ -No Was there de-escalation of care discussed even if they declined (Discuss DNR or withdrawal of care, Hospice)? DNR status @ -No What co-morbidities impacted this encounter? (DM, HTN, Smoking, COPD, CAD, Cancer, CVA, ARF, Chemo, Hep., AIDS, mental health diagnosis, sleep apnea, morbid obesity)? @ -None Was patient admitted / discharged? Hospital course, mention meds given and route, prescriptions, significant lab abnormalities, going to OR and other pertinent info. @ -Chest pressure patient presented for left arm pain paresthesias symptoms have been present for several weeks. Workup is negative this time do feel this is related to cervical radiculopathy. Patient will follow-up with orthopedic spine. She has no evidence of hematuria currently. Laboratory studies unremarkable. Undiagnosed new problem with uncertain prognosis? @ -No Drug Therapy requiring intensive monitoring for toxicity (Heparin, Nitro, Insulin, Cardizem)? @ -No Were any procedures done? @ -No Diagnosis/symptom? @ -Cervical radiculopathy, abdominal pain Acute, or Chronic, or Acute on Chronic? @ -Acute Uncomplicated (without systemic symptoms) or Complicated (systemic symptoms)? @ -uncomplicated Side effects of treatment? @ -No Exacerbation, Progression, or Severe Exacerbation? @ -No Poses a threat to life or bodily function? How? (Chest pain, [place], [place], pneumonia, PE, COPD, DKA, ARF, appy, cholecystitis, CVA, Diverticulitis, Homicidal, Suicidal, threat to staff... and all critical care pts) @ -No - Lab Data Result diagrams: 04/05/24 08:40 04/05/24 08:40 Lab Results 04/05/24 04/05/24 04/05/24 Range/Units 08:40 08:40 08:40 WBC 9.7 (3.8-10.6) k/uL RBC 4.27 (3.80-5.40) m/uL Hgb 14.3 (11.4-16.0) gm/dL Hct 43.0 (34.0-46.0) % MCV 100.7 H (80.0-100.0) fL MCH 33.5 (25.0-35.0) pg MCHC 33.3 (31.0-37.0) g/dL RDW 12.4 (11.5-15.5) % Plt Count 254 (150-450) k/uL MPV 7.3 Neutrophils % 76 % Lymphocytes % 17 % Monocytes % 4 % Eosinophils % 2 % Basophils % 0 % Neutrophils # 7.3 (1.3-7.7) k/uL Lymphocytes # 1.6 (1.0-4.8) k/uL Monocytes # 0.4 (0-1.0) k/uL Eosinophils # 0.2 (0-0.7) k/uL Basophils # 0.0 (0-0.2) k/uL Sodium 138 (137-145) mmol/L Potassium 4.4 (3.5-5.1) mmol/L Chloride 101 (98-107) mmol/L Carbon Dioxide 31 H (22-30) mmol/L Anion Gap 6 mmol/L BUN 9 (7-17) mg/dL Creatinine 0.77 (0.52-1.04) mg/dL Est GFR (CKD-EPI)AfAm >90 (>60 ml/min/1.73 sqM) Est GFR (CKD-EPI)NonAf >90 (>60 ml/min/1.73 sqM) Glucose 99 (74-99) mg/dL Plasma Lactic Acid David (0.7-2.0) mmol/L Calcium 10.0 (8.4-10.2) mg/dL Total Bilirubin 0.5 (0.2-1.3) mg/dL AST 28 (14-36) U/L ALT 34 (4-34) U/L Alkaline Phosphatase 77 (38-126) U/L Troponin I (0.000-0.034) ng/mL Total Protein 7.0 (6.3-8.2) g/dL Albumin 4.4 (3.5-5.0) g/dL Lipase 32 (23-300) U/L Urine Color Colorless Urine Appearance Clear (Clear) Urine pH 7.0 (5.0-8.0) Ur Specific Mohler 1.004 (1.001-1.035) Urine Protein Negative (Negative) Urine Glucose (UA) Negative (Negative) Urine Ketones Negative (Negative) Urine Blood Negative (Negative) Urine Nitrite Negative (Negative) Urine Bilirubin Negative (Negative) Urine Urobilinogen <2.0 (<2.0) mg/dL Ur Leukocyte Esterase Negative (Negative) 10/29/24 10/29/24 Range/Units 08:40 08:40 WBC (3.8-10.6) k/uL RBC (3.80-5.40) m/uL Hgb (11.4-16.0) gm/dL Hct (34.0-46.0) % MCV (80.0-100.0) fL MCH (25.0-35.0) pg MCHC (31.0-37.0) g/dL RDW (11.5-15.5) % Plt Count (150-450) k/uL MPV Neutrophils % % Lymphocytes % % Monocytes % % Eosinophils % % Basophils % % Neutrophils # (1.3-7.7) k/uL Lymphocytes # (1.0-4.8) k/uL Monocytes # (0-1.0) k/uL Eosinophils # (0-0.7) k/uL Basophils # (0-0.2) k/uL Sodium (137-145) mmol/L Potassium (3.5-5.1) mmol/L Chloride (98-107) mmol/L Carbon Dioxide (22-30) mmol/L Anion Gap mmol/L BUN (7-17) mg/dL Creatinine (0.52-1.04) mg/dL Est GFR (CKD-EPI)AfAm (>60 ml/min/1.73 sqM) Est GFR (CKD-EPI)NonAf (>60 ml/min/1.73 sqM) Glucose (74-99) mg/dL Plasma Lactic Acid David 0.9 (0.7-2.0) mmol/L Calcium (8.4-10.2) mg/dL Total Bilirubin (0.2-1.3) mg/dL AST (14-36) U/L ALT (4-34) U/L Alkaline Phosphatase (38-126) U/L Troponin I <0.012 (0.000-0.034) ng/mL Total Protein (6.3-8.2) g/dL Albumin (3.5-5.0) g/dL Lipase (23-300) U/L Urine Color Urine Appearance (Clear) Urine pH (5.0-8.0) Ur Specific Mohler (1.001-1.035) Urine Protein (Negative) Urine Glucose (UA) (Negative) Urine Ketones (Negative) Urine Blood (Negative) Urine Nitrite (Negative) Urine Bilirubin (Negative) Urine Urobilinogen (<2.0) mg/dL Ur Leukocyte Esterase (Negative) Disposition Clinical Impression: Abdominal pain, Cervical radiculopathy Disposition: HOME SELF-CARE Condition: Stable Instructions (If sedation given, give patient instructions): Cervical Radiculopathy (ED) Additional Instructions: Please return to the Emergency Department if symptoms worsen or any other concerns. Prescriptions: Cyclobenzaprine [Flexeril] 10 mg PO TID PRN #15 tab PRN Reason: Muscle Spasm predniSONE 50 mg PO DAILY #4 tab Is patient prescribed a controlled substance at d/c from ED?: No Referrals: Alhaji Guzman Jr, DO [Primary Care Provider] - 1-2 days Time of Disposition: 10:37
[2024-04-05 12:06] VITALS: BP 131/74; PULSE 72; RESP 16; TEMP 98.7
== END 2024-04-05 13:14 | disposition home or self-care (01) ==
LOC: EC 08:08
DX: R10.9 Unspecified abdominal pain (principal); M54.12 Radiculopathy, cervical region; F17.200 Nicotine dependence, unspecified, uncomplicated; Z88.5 Allergy status to narcotic agent; Z88.1 Allergy status to other antibiotic agents
CPT/HCPCS: 36415; 93005; 80053; 83605; 83690; 84484; 85025; 81003; 72050; 99284; 96374; 96375 ×3; 96361; J1100; J2405; J1885; J1171

== ENCOUNTER → 2024-04-12 | Outpatient (CLI) | payer BC ==
--- NOTE | 2024-04-12 16:52 | CT ---
EXAMINATION TYPE: CT abdomen pelvis wo con DATE OF EXAM: 04/12/2024 COMPARISON: 01/08/2024 INDICATION: Abdominal pain continuing to increase after having gallbladder removed back in early 2023. DLP: 528 mGycm, Automated exposure control for dose reduction was used. CONTRAST: 0 mL of Isovue 300. Study performed without Oral Contrast TECHNIQUE: Axial images were obtained from above the diaphragm to the pubic rami in the axial plane a t 5 mm thick sections. Reconstructed images are reviewed on the computer in the coronal plane. FINDINGS: Limited CT sections are obtained the lung bases. The lung bases are clear. CT ABDOMEN: Liver: Normal Spleen: Normal Pancreas: Normal Adrenal glands: The adrenal glands are normal. Gallbladder: Not visualized. Kidneys: No masses are evident. No hydronephrosis is present. No cysts are present. No renal or ur eteral stones evident. Aorta: Vascular calcification is within the aorta. Inferior vena cava: Normal. CT PELVIS: Fecal debris is within the colon. A few diverticular changes without acute diverticulitis may be with in the sigmoid colon. This study is without oral contrast limiting bowel evaluation. Appendix: Not identified. No dilated tubular structure or inflammatory changes evident. Urinary bladder: Normal. Genitourinary structures: Uterus is normal. Adnexa are normal. Osseous structures: No suspicious lytic or sclerotic lesions. Spondylolysis of L5 is present. IMPRESSION: 1. Fecal retention. 2. No acute intra-abdominal changes [facility], Workstation: [email or web address], 04/12/2024 4:50 PM
[2024-04-13 03:32] LABS: ALT 58 U/L (8-44); AST 26 U/L (13-35); Alkaline Phosphatase 95 U/L (41-126); BUN/Creat Ratio 18.44 Ratio (12.00-20.00); Blood Urea Nitrogen 16.6 mg/dL (9.0-27.0); Calcium 11.1 mg/dL (8.7-10.3); Carbon Dioxide 26.7 mmol/L (21.6-31.8); Chloride 96 mmol/L (96-109); Globulin 2.5 g/dL (1.6-3.3); Glucose 102 mg/dL (70-110); Potassium 4.5 mmol/L (3.5-5.5); Sodium 137 mmol/L (135-145); Total Bilirubin 0.4 mg/dL (0.3-1.2); Total Protein 7.5 g/dL (6.2-8.2)
[2024-04-13 04:00] LABS: Basophils # (A) 0.04 X 10*3/uL (0.00-0.10); Basophils % (A) 0.4 %; Eosinophils # (A) 0.16 X 10*3/uL (0.04-0.35); Eosinophils % (A) 1.5 %; HGB 15.3 g/dL (12.0-15.0); Lymphocytes # (A) 3.28 X 10*3/uL (0.90-5.00); MCH 34.5 pg (27.0-32.0); MCHC 34.8 g/dL (32.0-37.0); MCV 99.3 FL (80.0-97.0); Mean Platelet Volume 10.6 FL (9.5-12.2); Monocytes # (A) 0.74 X 10*3/uL (0.20-1.00); NRBC Per 100 WBC 0 X 10*3/uL (0.00-0.01); Neutrophils # (A) 6.32 X 10*3/uL (1.80-7.70); Neutrophils % (A) 59.7 %; Platelet Count 364 X 10*3/uL (140-440); RBC 4.43 X 10*6/uL (4.10-5.20); RDW 12.3 % (11.5-14.5); WBC 10.58 X 10*3/uL (4.50-10.00)
== END | disposition home or self-care (01) ==
LOC: RADCTMAIN 15:44
PROVIDERS: ATTEND Family Medicine
DX: Z90.49 Acquired absence of other specified parts of digestive tract (principal); K59.00 Constipation, unspecified; R10.816 Epigastric abdominal tenderness; R14.2 Eructation
CPT/HCPCS: 74176; 80053; 85025

== ENCOUNTER 2024-05-15 22:05 | Emergency (ER) | payer BC ==
[2024-05-15 22:09] VITALS: TEMP 98.1
[2024-05-15] MEDS: MAG HYDROX/AL HYDROX/SIMETH 30 ML, HYOSCYAMINE ELIXIR 10 ML, LIDOCAINE VISCOUS 2% 10 ML PO STA (22:45)
[2024-05-15] MEDS: diphenhydrAMINE 50 MG/ML 1 ML VIAL IM STA (22:50)
[2024-05-15] MEDS: KETOROLAC 15 MG/ML 1 ML VIAL IM STA (22:50)
[2024-05-15] MEDS: DEXAMETHASONE SOD PHOSPHATE 10 MG/ML 1 ML VIAL IM STA (22:50)
--- NOTE | 2024-05-15 23:22 | ED ---
ENT HPI - General Chief complaint: ENT Stated complaint: KIM Time Seen by Provider: 05/15/24 22:11 Source: patient Mode of arrival: ambulatory Limitations: no limitations - History of Present Illness Initial comments: 49-year-old female presenting with chief complaint of sore throat. Patient states that she is having intense burning in her throat and feels like she is having difficulty breathing. She is having a lot of pain with swallowing, still able to swallow fluids. She reports white spots on her tongue and tonsils. No stridor. No drooling or hot potato voice. No known exposure to any allergens. No new foods, medications, or other ingestions - Related Data Home Medications Medication Instructions Recorded Confirmed Citalopram Hydrobromide [CeleXA] 20 mg PO HS 03/09/24 04/05/24 Dextroamphetamine/Amphetamine 20 mg PO BID 03/09/24 04/05/24 [Adderall] Fexofenadine HCl [Lacey Allergy] 180 mg PO DAILY 03/09/24 04/05/24 L.acidoph,Paracasei, B.lactis 1 cap PO DAILY 03/09/24 04/05/24 [Probiotic] Multivitamins, Thera [Multivitamin 1 tab PO DAILY 03/09/24 04/05/24 (formulary)] Ondansetron [Zofran] 4 mg PO Q6H PRN 03/24/24 04/05/24 Psyllium Husk [Fiber Capsule] 0.4 gm PO DAILY 03/24/24 04/05/24 Simethicone [Gas-X] 125 mg PO TID 03/24/24 04/05/24 Nystatin 100,000 Unit/ml Susp 400,000 unit PO QID 04/05/24 04/05/24 [Mycostatin Oral Susp] Previous Rx's Medication Instructions Recorded Omeprazole 20 mg PO DAILY #30 cap 03/12/24 Acetaminophen Tab [Tylenol] 650 mg PO Q6H #30 tab 03/25/24 Docusate [Colace] 100 mg PO BID #20 capsule 03/25/24 Ibuprofen [Motrin] 600 mg PO Q6HR PRN #40 tab 03/25/24 oxyCODONE HCL [OxyIR] 5 mg PO Q6H PRN 3 Days #10 tab 03/25/24 Cyclobenzaprine [Flexeril] 10 mg PO TID PRN #15 tab 04/05/24 predniSONE 50 mg PO DAILY #4 tab 04/05/24 Allergies Allergy/AdvReac Type Severity Reaction Status Date / Time codeine Allergy Itching Verified 05/15/24 22:09 cephalexin [From Keflex] AdvReac Diarrhea Verified 05/15/24 22:09 Review of Systems ROS Statement: Those systems with pertinent positive or pertinent negative responses have been documented in the HPI. ROS Other: All systems not noted in ROS Statement are negative. Past Medical History Past Medical History: GERD/Reflux Additional Past Medical History / Comment(s): CURRENT TX FOR YEAST INFECTION. PROAIR FOR ALLERGY SYMPTOMS History of Any Multi-Drug Resistant Organisms: None Reported Past Surgical History: Appendectomy, Hernia Repair Past Anesthesia/Blood Transfusion Reactions: No Reported Reaction Past Psychological History: No Psychological Hx Reported Smoking Status: Current every day smoker Past Alcohol Use History: Occasional Past Drug Use History: Marijuana - Past Family History Mother History Unknown: Yes Father Family Medical History: Hypertension General Exam Limitations: no limitations General appearance: alert, in distress (In pain) Head exam: Present: atraumatic, normocephalic, normal inspection Eye exam: Present: normal appearance, EOMI Expanded Mouth exam: Present: normal external inspection. Absent: drooling, trismus, muffled voice Throat exam: tonsillar erythema. negative: tonsillomegaly, tonsillar exudate Neck exam: Present: normal inspection. Absent: meningismus Respiratory exam: Absent: respiratory distress, stridor Cardiovascular Exam: Present: regular rate Neurological exam: Present: alert, oriented X3 Psychiatric exam: Present: normal affect, normal mood Skin exam: Present: warm, dry, normal color Course Vital Signs 05/15/24 05/16/24 22:08 01:54 Temperature 98.1 F Pulse Rate 73 61 Respiratory 16 17 Rate Blood Pressure 159/105 138/92 O2 Sat by Pulse 100 98 Oximetry Medical Decision Making - Medical Decision Making Was pt. sent in by a medical professional or institution (, PA, UI APPLICATION DEVELOPER, urgent care, hospital, or assisted...) When possible be specific @ -No Did you speak to anyone other than the patient for history (EMS, parent, family, police, friend...)? What history was obtained from this source @ -No Did you review nursing and triage notes (agree or disagree)? Why? @ -I reviewed and agree with nursing and triage notes Were old charts reviewed (outside hosp., previous admission, EMS record, old EKG, old radiological studies, urgent care reports/EKG's, assisted records)? Report findings @ -No old charts were reviewed Differential Diagnosis (chest pain, altered mental status, abdominal pain women, abdominal pain men, vaginal bleeding, weakness, fever, dyspnea, syncope, headache, dizziness, GI bleed, back pain, seizure, CVA, palpatations, mental health, musculoskeletal)? @ -Differential includes strep pharyngitis, viral pharyngitis, retropharyngeal abscess, epiglottitis, this is not an all-inclusive list EKG interpreted by me (3pts min.). @ -As above X-rays interpreted by me (1pt min.). @ -X-ray shows airway normal. Degenerative disc disease. Prevertebral soft tissues are unremarkable CT interpreted by me (1pt min.). @ -None done U/S interpreted by me (1pt. min.). @ -None done What testing was considered but not performed or refused? (CT, X-rays, U/S, labs)? Why? @ -None What meds were considered but not given or refused? Why? @ -None Did you discuss the management of the patient with other professionals (professionals i.e. , PA, UI APPLICATION DEVELOPER, lab, RT, psych nurse, social worker assistant, journal entry audit clerk, teacher, executive officer special warfare team, window caser)? Give summary @ -No Was smoking cessation discussed for >3mins.? @ -No Was critical care preformed (if so, how long)? @ -No Were there social determinants of health that impacted care today? How? (Homelessness, low income, unemployed, alcoholism, drug addiction, transportation, low edu. Level, literacy, decrease access to med. care, senior care, rehab)? @ -No Was there de-escalation of care discussed even if they declined (Discuss DNR or withdrawal of care, Hospice)? DNR status @ -No What co-morbidities impacted this encounter? (DM, HTN, Smoking, COPD, CAD, Cancer, CVA, ARF, Chemo, Hep., AIDS, mental health diagnosis, sleep apnea, morbid obesity)? @ -None Was patient admitted / discharged? Hospital course, mention meds given and route, prescriptions, significant lab abnormalities, going to OR and other pertinent info. @ -49-year-old female presenting with chief complaint of throat pain that started today. History and physical exam are conducted. Patient is still able to breathe and swallow without difficulty though she does experience pain. No stridor or drooling tripoding or hot potato voice. Mild erythema of the posterior pharynx, otherwise relatively unremarkable examination of the oropharynx. Geographic tongue versus aphthous ulcers. She is negative for group A strep, throat culture sent out. Soft tissue neck x-ray shows no acute process. Patient was treated with GI cocktail, Decadron, Benadryl, and Toradol. She is educated on today's findings and supportive management at home. Provided with cepacol lozenge. She is going to follow-up with her PCP tomorrow. Follow-up with PCP. Report back to ER with any new or worsening symptoms. Discussed return parameters and answered all questions. Patient conveyed verbal understanding and agreed to the plan. I discussed this case in detail with my attending Dr. Singh Undiagnosed new problem with uncertain prognosis? @ -No Drug Therapy requiring intensive monitoring for toxicity (Heparin, Nitro, Insulin, Cardizem)? @ -No Were any procedures done? @ -No Diagnosis/symptom? @ -Throat pain Acute, or Chronic, or Acute on Chronic? @ -Acute Uncomplicated (without systemic symptoms) or Complicated (systemic symptoms)? @ -Uncomplicated Side effects of treatment? @ -No Exacerbation, Progression, or Severe Exacerbation? @ -No Poses a threat to life or bodily function? How? (Chest pain, [place], [place], pneumonia, PE, COPD, DKA, ARF, appy, cholecystitis, CVA, Diverticulitis, Homicidal, Suicidal, threat to staff... and all critical care pts) @ -Unlikely - Lab Data Lab Results 05/15/24 Range/Units 22:57 Group A Strep (PCR) NOT DETECTED (Not Detectd) Disposition Clinical Impression: Throat pain Disposition: HOME SELF-CARE Condition: Good Instructions (If sedation given, give patient instructions): Pharyngitis (ED) Additional Instructions: Follow-up with PCP. Report back to ER with any new or worsening symptoms. Is patient prescribed a controlled substance at d/c from ED?: No Referrals: Alhaji Guzman Jr, DO [Primary Care Provider] - 1-2 days Time of Disposition: 01:30
--- NOTE | 2024-05-16 00:53 | XR ---
EXAM: XR Soft Tissue Neck CLINICAL HISTORY: ITS.REASON XR Reason: pain, diff swallowing TECHNIQUE: Frontal and lateral views of the soft tissues of the neck. COMPARISON: No previous studies. FINDINGS: Airway: Airway is normal. Bones/joints: Straightening and reversal of the curvature of the cervical spine suggestive of muscle spasm. Mild to moderate degenerative disc disease. No acute fracture. Soft tissues: Soft tissues are unremarkable. Normal epiglottis. IMPRESSION: 1. Airway is normal. 2. Degenerative disc disease. 3. Prevertebral soft tissues are unremarkable.
[2024-05-16] MEDS: BENZOCAINE/MENTHOL LOZENG 1 EACH LOZENGE MUCOUS MEM STA (01:51)
[2024-05-16 01:56] VITALS: BP 138/92; PULSE 61; RESP 17
== END 2024-05-16 01:56 | disposition home or self-care (01) ==
LOC: EC 22:05
DX: R07.0 Pain in throat (principal); F17.200 Nicotine dependence, unspecified, uncomplicated; Z88.1 Allergy status to other antibiotic agents; Z88.2 Allergy status to sulfonamides
CPT/HCPCS: 87651; 87070; 70360; 99285; 96372; J1200; J1100; J1885

== ENCOUNTER → 2024-05-19 | Outpatient (CLI) | payer BC ==
--- NOTE | 2024-05-19 16:45 | XR ---
EXAMINATION TYPE: XR chest 2V DATE OF EXAM: 05/19/2024 4:30 PM COMPARISON: None CLINICAL INDICATION: Female, 49 years old with history of R05.9, R06.2; TECHNIQUE: XR chest 2V Frontal and lateral views of the chest. FINDINGS: Lungs/Pleura: There is no evidence of pleural effusion, focal consolidation, or pneumothorax. Pulmonary vascularity: Unremarkable. Heart/mediastinum: Cardiomediastinal silhouette is unremarkable. Musculoskeletal: No acute osseous pathology. IMPRESSION: No acute cardiopulmonary disease/process. [facility], , 05/19/2024 4:43 PM
== END | disposition home or self-care (01) ==
LOC: RADXRMAIN 16:10
DX: R05.9 Cough, unspecified (principal); R06.2 Wheezing
CPT/HCPCS: 71046

== ENCOUNTER 2024-05-25 11:39 | Emergency (ER) | payer BC ==
[2024-05-25 11:46] VITALS: TEMP 98.9
--- NOTE | 2024-05-25 12:23 | ED ---
SOB HPI - General Chief Complaint: Shortness of Breath Stated Complaint: sob Time Seen by Provider: 05/25/24 12:20 Source: patient, EMS, RN notes reviewed, old records reviewed Mode of arrival: EMS Limitations: no limitations - History of Present Illness Initial Comments: This is a 49-year-old female to the ER for evaluation today. She is presenting today for evaluation of shortness of breath, history of bad dentition and decreased appetite. Patient states she does have underlying asthma possibly COPD with history of smoking. Recent significant weight loss and sent to the ER by primary care for further evaluation MD Complaint: shortness of breath, cough -: days(s), week(s), month(s) Severity: moderate Severity scale (1-10): 4 Consistency: intermittent Improves With: nothing Worsens With: exertion Known History Of: COPD Context: recent URI, anxiety, recent illness, other (weight loss) Associated Symptoms: denies other symptoms Treatments Prior to Arrival: bronchodilator - Related Data Home Medications Medication Instructions Recorded Confirmed Multivitamins, Thera [Multivitamin 1 tab PO DAILY 03/09/24 05/25/24 (formulary)] Simethicone [Gas-X] 125 mg PO TID PRN 03/24/24 05/25/24 Albuterol Sulfate [Albuterol 1 puff PO RT-Q4H PRN 05/25/24 05/25/24 Sulfate Hfa] Amoxicillin 875 mg PO BID 05/25/24 05/25/24 Pantoprazole [Protonix] 40 mg PO DAILY PRN 05/25/24 05/25/24 Allergies Allergy/AdvReac Type Severity Reaction Status Date / Time codeine Allergy Itching Verified 05/25/24 13:43 cephalexin [From Keflex] AdvReac Diarrhea Verified 05/25/24 13:43 Review of Systems ROS Statement: Those systems with pertinent positive or pertinent negative responses have been documented in the HPI. ROS Other: All systems not noted in ROS Statement are negative. Past Medical History Past Medical History: GERD/Reflux Additional Past Medical History / Comment(s): CURRENT TX FOR YEAST INFECTION. PROAIR FOR ALLERGY SYMPTOMS History of Any Multi-Drug Resistant Organisms: None Reported Past Surgical History: Appendectomy, Hernia Repair Past Anesthesia/Blood Transfusion Reactions: No Reported Reaction Past Psychological History: No Psychological Hx Reported Smoking Status: Current every day smoker Past Alcohol Use History: Occasional Past Drug Use History: Marijuana - Past Family History Mother History Unknown: Yes Father Family Medical History: Hypertension General Exam General appearance: alert, in no apparent distress Head exam: Present: atraumatic, normocephalic, normal inspection Eye exam: Present: normal appearance, PERRL, EOMI. Absent: scleral icterus, conjunctival injection, periorbital swelling ENT exam: Present: normal exam, mucous membranes moist Neck exam: Present: normal inspection. Absent: tenderness, meningismus, lym phadenopathy Respiratory exam: Present: normal lung sounds bilaterally. Absent: respiratory distress, wheezes, rales, rhonchi, stridor Cardiovascular Exam: Present: regular rate, normal rhythm, normal heart sounds. Absent: systolic murmur, diastolic murmur, rubs, gallop, clicks GI/Abdominal exam: Present: soft, normal bowel sounds. Absent: distended, tenderness, guarding, rebound, rigid Extremities exam: Present: normal inspection, full ROM, normal capillary refill. Absent: tenderness, pedal edema, joint swelling, calf tenderness Back exam: Present: normal inspection Neurological exam: Present: alert, oriented X3, CN II-XII intact Psychiatric exam: Present: normal affect, normal mood Skin exam: Present: warm, dry, intact, normal color. Absent: rash Course Vital Signs 05/25/24 05/25/24 05/25/24 11:43 13:22 13:45 Temperature 98.9 F Pulse Rate 78 72 71 Respiratory 20 18 18 Rate Blood Pressure 110/75 114/73 O2 Sat by Pulse 100 96 Oximetry 05/25/24 13:53 Temperature Pulse Rate 71 Respiratory 18 Rate Blood Pressure O2 Sat by Pulse Oximetry - Reevaluation(s) Reevaluation #1: 05/25/24 12:34 Medical records reviewed Reevaluation #4: Was pt. sent in by a medical professional or institution (, PA, CORPORATE ANALYST, urgent care, hospital, or long-term...) When possible be specific @ -no Did you speak to anyone other than the patient for history (EMS, parent, family, police, friend...)? What history was obtained from this source @ -no Did you review nursing and triage notes (agree or disagree)? Why? @ -agree Are old charts reviewed (outside hosp., previous admission, EMS record, old EKG, old radiological studies, urgent care reports/EKG's, long-term records)? Report findings @ -yes Differential Diagnosis (chest pain, altered mental status, abdominal pain women, abdominal pain men, vaginal bleeding, weakness, fever, dyspnea, syncope, headache, dizziness, GI bleed, back pain, seizure, CVA, palpatations, mental health, musculoskeletal)? @ -prior EKG interpreted by me (3pts min.). @ -yes X-rays interpreted by me (1pt min.). @ -yes negative for acute disease CT interpreted by me (1pt min.). @ -no U/S interpreted by me (1pt. min.). @ -no What testing was considered but not performed or refused? (CT, X-rays, U/S, labs)? Why? @ -none What meds were considered but not given or refused? Why? @ -none Did you discuss the management of the patient with other professionals (professionals i.e. , PA, CORPORATE ANALYST, lab, RT, psych nurse, mental health social worker, proof technician, teacher, admitting officer, case resolution specialist)? Give summary @ -no Was smoking cessation discussed for >3mins.? @ -no Was critical care preformed (if so, how long)? @ -no Were there social determinants of health that impacted care today? How? (Homelessness, low income, unemployed, alcoholism, drug addiction, transportation, low edu. Level, literacy, decrease access to med. care, long-term, rehab)? @ -none Was there de-escalation of care discussed even if they declined (Discuss DNR or withdrawal of care, Hospice)? DNR status @ -no What co-morbidities impacted this encounter? (DM, HTN, Smoking, COPD, CAD, Cancer, CVA, ARF, Chemo, Hep., AIDS, mental health diagnosis, sleep apnea, morbid obesity)? @ -none Was patient admitted / discharged? Hospital course, mention meds given and route, prescriptions, significant lab abnormalities, going to OR and other pertinent info. @ - Undiagnosed new problem with uncertain prognosis? @ -no Drug Therapy requiring intensive monitoring for toxicity (Heparin, Nitro, Insulin, Cardizem)? @ -no Were any procedures done? @ -no Diagnosis/symptom? @ - Acute, or Chronic, or Acute on Chronic? @ -Acute Uncomplicated (without systemic symptoms) or Complicated (systemic symptoms)? @ -Complicated Side effects of treatment? @ -no Exacerbation, Progression, or Severe Exacerbation? @ -exacerbation Poses a threat to life or bodily function? How? (Chest pain, [place], [place], pneumonia, PE, COPD, DKA, ARF, appy, cholecystitis, CVA, Diverticulitis, Homicidal, Suicidal, threat to staff... and all critical care pts) @ -yes Reevaluation #5: Differential Dyspnea: Coronary syndrome, arrhythmia, tamponade, asthma, COPD, pulmonary embolism, pneumonia, pneumothorax, pulmonary effusion, anaphylaxis, diabetic ketoacidosis, flailed chest, pulmonary contusion, diaphragmatic rupture, anemia, neur omuscular, this is not meant to be an all-inclusive list. Medical Decision Making - Lab Data Result diagrams: 05/25/24 12:34 05/25/24 12:34 Lab Results 05/25/24 05/25/24 05/25/24 Range/Units 12:34 12:34 12:34 WBC 14.3 H (3.8-10.6) k/uL RBC 4.36 (3.80-5.40) m/uL Hgb 15.0 (11.4-16.0) gm/dL Hct 43.4 (34.0-46.0) % MCV 99.7 (80.0-100.0) fL MCH 34.3 (25.0-35.0) pg MCHC 34.4 (31.0-37.0) g/dL RDW 11.7 (11.5-15.5) % Plt Count 281 (150-450) k/uL MPV 6.9 Neutrophils % 89 % Lymphocytes % 8 % Monocytes % 2 % Eosinophils % 1 % Basophils % 0 % Neutrophils # 12.7 H (1.3-7.7) k/uL Lymphocytes # 1.1 (1.0-4.8) k/uL Monocytes # 0.3 (0-1.0) k/uL Eosinophils # 0.1 (0-0.7) k/uL Basophils # 0.0 (0-0.2) k/uL PT 10.8 (10.0-12.5) sec INR 1.0 (<1.2) APTT 22.3 (22.0-30.0) sec D-Dimer 0.18 (<0.60) mg/L FEU Sodium 135 L (137-145) mmol/L Potassium 4.5 (3.5-5.1) mmol/L Chloride 100 (98-107) mmol/L Carbon Dioxide 27 (22-30) mmol/L Anion Gap 8 mmol/L BUN 16 (7-17) mg/dL Creatinine 0.72 (0.52-1.04) mg/dL Est GFR (CKD-EPI)AfAm >90 (>60 ml/min/1.73 sqM) Est GFR (CKD-EPI)NonAf >90 (>60 ml/min/1.73 sqM) Glucose 120 H (74-99) mg/dL Calcium 10.5 H (8.4-10.2) mg/dL Magnesium 2.2 (1.6-2.3) mg/dL Total Bilirubin 0.8 (0.2-1.3) mg/dL AST 27 (14-36) U/L ALT 27 (4-34) U/L Alkaline Phosphatase 94 (38-126) U/L Troponin I (0.000-0.034) ng/mL NT-Pro-B Natriuret Pep 25 pg/mL Total Protein 7.6 (6.3-8.2) g/dL Albumin 5.0 (3.5-5.0) g/dL 24 Range/Units 12:34 WBC (3.8-10.6) k/uL RBC (3.80-5.40) m/uL Hgb (11.4-16.0) gm/dL Hct (34.0-46.0) % MCV (80.0-100.0) fL MCH (25.0-35.0) pg MCHC (31.0-37.0) g/dL RDW (11.5-15.5) % Plt Count (150-450) k/uL MPV Neutrophils % % Lymphocytes % % Monocytes % % Eosinophils % % Basophils % % Neutrophils # (1.3-7.7) k/uL Lymphocytes # (1.0-4.8) k/uL Monocytes # (0-1.0) k/uL Eosinophils # (0-0.7) k/uL Basophils # (0-0.2) k/uL PT (10.0-12.5) sec INR (<1.2) APTT (22.0-30.0) sec D-Dimer (<0.60) mg/L FEU Sodium (137-145) mmol/L Potassium (3.5-5.1) mmol/L Chloride (98-107) mmol/L Carbon Dioxide (22-30) mmol/L Anion Gap mmol/L BUN (7-17) mg/dL Creatinine (0.52-1.04) mg/dL Est GFR (CKD-EPI)AfAm (>60 ml/min/1.73 sqM) Est GFR (CKD-EPI)NonAf (>60 ml/min/1.73 sqM) Glucose (74-99) mg/dL Calcium (8.4-10.2) mg/dL Magnesium (1.6-2.3) mg/dL Total Bilirubin (0.2-1.3) mg/dL AST (14-36) U/L ALT (4-34) U/L Alkaline Phosphatase (38-126) U/L Troponin I <0.012 (0.000-0.034) ng/mL NT-Pro-B Natriuret Pep pg/mL Total Protein (6.3-8.2) g/dL Albumin (3.5-5.0) g/dL - EKG Data -: EKG Interpreted by Me (EKG is sinus 73 MA 148 QRS 88 QTc 383) Disposition Clinical Impression: Acute exacerbation of chronic obstructive pulmonary disease Disposition: HOME SELF-CARE Condition: Fair Instructions (If sedation given, give patient instructions): Acute Bronchitis (ED), Chronic Bronchitis (ED), Bronchospasm (ED) Is patient prescribed a controlled substance at d/c from ED?: No Referrals: Alhaji Guzman Jr, [Primary Care Provider] - 1-2 days Time of Disposition: 16:00
[2024-05-25 12:46] LABS: Basophils % (A) 0 %; Eosinophils # (A) 0.1 k/uL (0-0.7); Eosinophils % (A) 1 %; HCT 43.4 % (34.0-46.0); Lymphocytes # (A) 1.1 k/uL (1.0-4.8); Lymphocytes % (A) 8 %; MCH 34.3 pg (25.0-35.0); MCHC 34.4 g/dL (31.0-37.0); MCV 99.7 fL (80.0-100.0); Mean Platelet Volume 6.9; Monocytes # (A) 0.3 k/uL (0-1.0); Monocytes % (A) 2 %; Neutrophils # (A) 12.7 k/uL (1.3-7.7); Neutrophils % (A) 89 %; Platelet Count 281 k/uL (150-450); RBC 4.36 m/uL (3.80-5.40); RDW 11.7 % (11.5-15.5); WBC 14.3 k/uL (3.8-10.6)
[2024-05-25] MEDS: SODIUM CHLORIDE 0.9% 1,000 ML IV STA (12:57)
[2024-05-25 13:00] LABS: Partial Thromboplastin Time 22.3 sec (22.0-30.0); Prothrombin Time 10.8 sec (10.0-12.5)
[2024-05-25 13:09] LABS: ALT 27 U/L (4-34); African American GFR (CKD) >90 (>60 ml/min/1.73 sqM); Anion Gap 8 mmol/L; Blood Urea Nitrogen 16 mg/dL (7-17); Calcium 10.5 mg/dL (8.4-10.2); Carbon Dioxide 27 mmol/L (22-30); Chloride 100 mmol/L (98-107); Glucose 120 mg/dL (74-99); Non-African American GFR(CKD) >90 (>60 ml/min/1.73 sqM); Sodium 135 mmol/L (137-145); Total Bilirubin 0.8 mg/dL (0.2-1.3); Total Protein 7.6 g/dL (6.3-8.2)
[2024-05-25 13:10] LABS: Potassium 4.5 mmol/L (3.5-5.1)
[2024-05-25 13:11] LABS: AST 27 U/L (14-36); Alkaline Phosphatase 94 U/L (38-126); Magnesium 2.2 mg/dL (1.6-2.3)
[2024-05-25] MEDS: MORPHINE SULFATE 4 MG/ML SYRINGE IVP STA (13:15)
[2024-05-25 13:16] LABS: NT-Pro-B-Type Natriuretic Pept 25 pg/mL
[2024-05-25] MEDS: methylPREDNISolone SOD SUCCI 125 MG/2 ML VIAL IV STA (13:16)
--- NOTE | 2024-05-25 13:28 | XR ---
EXAMINATION TYPE: XR chest 2V DATE OF EXAM: 05/25/2024 1:12 PM COMPARISON: Chest radiographs from 05/25/2024 CLINICAL INDICATION: Female, 49 years old with history of difficulty breathing; TECHNIQUE: XR chest 2V Frontal and lateral views of the chest. FINDINGS: Lungs/Pleura: There is no evidence of pleural effusion, focal consolidation, or pneumothorax. Pulmonary vascularity: Unremarkable. Heart/mediastinum: Cardiomediastinal silhouette is unremarkable. Musculoskeletal: No acute osseous pathology. IMPRESSION: No acute cardiopulmonary disease/process. [facility], , 05/25/2024 1:26 PM
[2024-05-25] MEDS: IPRATROPIUM-ALBUTEROL 3 ML NEB INHALATION STA (13:45)
--- NOTE | 2024-05-25 14:28 | CT ---
EXAMINATION TYPE: CT angio chest CT DLP: combined 789.5 mGycm, Automated exposure control for dose reduction was used. DATE OF EXAM: 05/25/2024 2:17 PM COMPARISON: Chest radiograph 05/25/2024 CLINICAL INDICATION:Female, 49 years old with history of pain; KIM TECHNIQUE/CONTRAST: CTA scan of the thorax is performed with IV Contrast, patient injected with 50 mL of Isovue 370, pulm onary embolism protocol. MIP images are created and reviewed. FINDINGS: Pulmonary Artery: There is no evidence for a filling defect within the pulmonary vasculature to sugge st acute pulmonary embolism. The pulmonary artery is of normal size. Lungs/Pleura: No evidence of focal consolidation, pleural effusion or pneumothorax. Airway: Large airways are patent. Heart: Heart is within normal limits for size.. No pericardial effusion. Vasculature: No evidence of aortic aneurysm. Mediastinum: No evidence of adenopathy. Musculoskeletal: No acute osseous abnormalities Soft Tissues: Dystrophic calcifications within both breasts. Lower neck: No significant findings. Upper Abdomen: Please refer to dedicated CT abdomen and pelvis of same day for findings. IMPRESSION: No evidence of pulmonary embolism or acute thoracic process. [facility], , 05/25/2024 2:25 PM
--- NOTE | 2024-05-25 14:33 | CT ---
EXAMINATION TYPE: CT abdomen pelvis w con CT DLP: combined 789.5 mGycm, Automated exposure control for dose reduction was used. DATE OF EXAM: 05/25/2024 2:19 PM COMPARISON: CT abdomen pelvis 04/12/2024, 01/08/2024 CLINICAL INDICATION:Female, 49 years old with history of pain; Abdominal pain TECHNIQUE: Standard CT of the abdomen and pelvis following the administration of 100 cc of Isovue 3 00 IV contrast material. Coronal and sagittal reformats were performed. FINDINGS: LOWER CHEST: Please see dedicated CTA chest for findings ABDOMEN LIVER: Unremarkable GALLBLADDER AND BILE DUCTS: The gallbladder is surgically absent. No biliary ductal dilatation. PANCREAS: Unremarkable. SPLEEN: Unremarkable. ADRENAL GLANDS: Unremarkable. KIDNEYS AND URETERS: No evidence of hydronephrosis or renal calculus. The kidneys enhance symmetrical ly. Contrast is demonstrated within both collecting systems on the delayed phase. Prominent left extr arenal pelvis. Left renal vein. PELVIS BLADDER: Unremarkable REPRODUCTIVE: Unremarkable. ABDOMEN & PELVIS STOMACH AND BOWEL: No focal bowel wall thickening or surrounding inflammatory changes. Appendix is no t definitively identified however no significant inflammatory changes within the right lower quadrant . No evidence of bowel obstruction. PERITONEUM: No evidence of pneumoperitoneum or free fluid. VASCULATURE: Mild atherosclerotic calcifications are present throughout the abdominal aorta and its b ranches. No evidence of aortic aneurysm. Redemonstration of a pelvic phlebolith. MUSCULOSKELETAL: No acute osseous abnormalities. Grade 1 anterolisthesis of L5 on S1 with bilateral p ars defects. LYMPH NODES: No evidence for lymphadenopathy. SOFT TISSUE/ABDOMINAL WALL: Unremarkable IMPRESSION: No CT evidence for acute abdominal/pelvic process. [facility], , 05/25/2024 2:31 PM
[2024-05-25 19:33] VITALS: BP 124/82; PULSE 76; RESP 20
== END 2024-05-25 16:58 | disposition home or self-care (01) ==
LOC: EC 11:39
DX: J44.1 Chronic obstructive pulmonary disease with (acute) exacerbation (principal); F17.200 Nicotine dependence, unspecified, uncomplicated; Z88.1 Allergy status to other antibiotic agents; Z88.5 Allergy status to narcotic agent
CPT/HCPCS: 36415; 94640; 93005; 85379; 83880; 80053; 83735; 84484; 85025; 85610; 85730; 71046; 71275; 74177; 99285; 96374; 96375; 96361 ×2; J2270; Q9967; J2919

== ENCOUNTER → 2024-06-25 | Outpatient (CLI) | payer BC ==
[2024-06-25 23:24] LABS: Basophils # (A) 0.02 X 10*3/uL (0.00-0.10); Basophils % (A) 0.3 %; Eosinophils # (A) 0.06 X 10*3/uL (0.04-0.35); Eosinophils % (A) 0.8 %; HCT 41.9 % (37.2-46.3); HGB 14.1 g/dL (12.0-15.0); Lymphocytes # (A) 1.56 X 10*3/uL (0.90-5.00); Lymphocytes % (A) 19.6 %; MCH 33.9 pg (27.0-32.0); MCHC 33.7 g/dL (32.0-37.0); MCV 100.7 FL (80.0-97.0); Mean Platelet Volume 10.6 FL (9.5-12.2); Monocytes # (A) 0.48 X 10*3/uL (0.20-1.00); NRBC Per 100 WBC 0 X 10*3/uL (0.00-0.01); Neutrophils # (A) 5.81 X 10*3/uL (1.80-7.70); Platelet Count 244 X 10*3/uL (140-440); RBC 4.16 X 10*6/uL (4.10-5.20); RDW 11.6 % (11.5-14.5); WBC 7.95 X 10*3/uL (4.50-10.00)
[2024-06-26 10:21] LABS: ALT 40 U/L (8-44); AST 28 U/L (13-35); Albumin 4.8 g/dL (3.8-4.9); Albumin/Globulin Ratio 2.09 Ratio (1.60-3.17); Alkaline Phosphatase 104 U/L (41-126); BUN/Creat Ratio 13.62 Ratio (12.00-20.00); Blood Urea Nitrogen 10.9 mg/dL (9.0-27.0); Calcium 10.1 mg/dL (8.7-10.3); Carbon Dioxide 25.5 mmol/L (21.6-31.8); Chloride 100 mmol/L (96-109); Globulin 2.3 g/dL (1.6-3.3); Glucose 89 mg/dL (70-110); Potassium 4.4 mmol/L (3.5-5.5); Rheumatoid Factor, Qnt <15 IU/mL (0-15); Sodium 139 mmol/L (135-145); Total Bilirubin 0.2 mg/dL (0.3-1.2); Total Protein 7.1 g/dL (6.2-8.2)
[2024-06-27 09:59] LABS: HLA B27 NEGATIVE
[2024-06-27 12:04] LABS: Anti-DNA, DS unit <1.0 IU/mL; DNA Double-Stranded Negative (Negative)
== END | disposition home or self-care (01) ==
LOC: LABWHC1 08:49
PROVIDERS: ATTEND Family Medicine
DX: J44.9 Chronic obstructive pulmonary disease, unspecified (principal); J02.0 Streptococcal pharyngitis; H04.123 Dry eye syndrome of bilateral lacrimal glands; R14.2 Eructation; Z90.49 Acquired absence of other specified parts of digestive tract
CPT/HCPCS: 36415; 80053; 85025; 86038; 86225; 86431; 86812

== ENCOUNTER → 2024-08-06 | Outpatient (CLI) | payer BC | END | disposition home or self-care (01) | LOC: LABWHC1 08:45 | PROVIDERS: ATTEND Otolaryngology | DX: K11.7 Disturbances of salivary secretion (principal) | CPT/HCPCS: 36415; 86235 ==

== ENCOUNTER → 2024-09-06 | Outpatient (CLI) | payer BC | END | disposition home or self-care (01) | LOC: CPPFTMAIN 13:42 | PROVIDERS: ATTEND Family Medicine | DX: R06.02 Shortness of breath (principal); R05.9 Cough, unspecified; F12.90 Cannabis use, unspecified, uncomplicated; F17.210 Nicotine dependence, cigarettes, uncomplicated; Z88.1 Allergy status to other antibiotic agents; Z88.5 Allergy status to narcotic agent | CPT/HCPCS: 94060; 94726; 94729 ==